=== PATIENT | female | born 1945 | race Caucasian/White ===

== ENCOUNTER 2016-09-26 09:00 | Outpatient (CLI) ==
[2013-12-08 23:12] VITALS: BMI 29.2
[2016-09-26] MEDS ORDERED: RECLAST 5 MG/100 ML SOLUTION 5 MG in PREMIX INFUSION 100 ML VIAL 1 VIAL IV ONE (09:10)
[2016-09-26 09:44] LABS: CALCIUM 9.3 mg/dL (8.2-10.2); CREATININE 0.76 mg/dL (0.60-1.30)
== END 2016-09-26 09:01 | disposition home or self-care (01) ==
LOC: OPMED 09:00
PROVIDERS: ATTEND Emergency Medicine
DX: M81.0 Age-related osteoporosis without current pathological fracture (principal)
CPT/HCPCS: 36415; 82310; 82565; 96365

== ENCOUNTER 2017-01-03 10:44 | Outpatient (CLI) | payer OTHER ==
[2013-12-08 23:12] VITALS: BMI 29.2
[2017-01-03 12:47] LABS: BASOPHILS # (AUTO) 0.1 K/uL (0-0.2); BASOPHILS % (AUTO) 0.7 % (0.0-3.0); EOSINOPHILS # (AUTO) 0.2 K/ul (0.0-0.7); EOSINOPHILS % (AUTO) 2.7 % (0.0-7.0); HEMATOCRIT 43.8 % (37.0-47.0); HEMOGLOBIN 14.7 g/dl (12.0-16.0); IMMATURE GRANULOCYTE % (AUTO) 0.3 % (0.0-5.0); LYMPHOCYTES # (AUTO) 2.2 K/uL (0.60-3.4); LYMPHOCYTES % (AUTO) 30.2 (10.0-50.0); MEAN CORPUSCULAR HEMOGLOBIN 27.7 pg (27.0-31.0); MEAN CORPUSCULAR HGB CONC 33.6 (31.8-35.4); MEAN CORPUSCULAR VOLUME 82.6 fl (81.0-99.0); MONOCYTES # (AUTO) 0.5 K/uL (0.4-2.0); MONOCYTES % (AUTO) 6.7 (0-10); NEUTROPHILS # (AUTO) 4.3 K/ul (2.0-6.9); NEUTROPHILS % (AUTO) 59.4; PLATELET COUNT 316 10^3/uL (140-440); WHITE BLOOD COUNT 7.16 K/ul (4.6-10.2)
[2017-01-03 13:38] LABS: ALBUMIN 3.7 g/dL (3.4-5.0); ALBUMIN/GLOBULIN RATIO 1.12; ANION GAP 17.1; BILIRUBIN,TOTAL 0.32 mg/dL (0.00-1.20); BUN/CREATININE RATIO 16.88; CALCIUM 9.9 mg/dL (8.2-10.2); CHOL/HDL RATIO 3.5 (4.5-5.5); CREATININE 0.77 mg/dL (0.60-1.30); POTASSIUM 4.1 mmol/L (3.5-5.10)
== END 2017-01-03 10:45 | disposition home or self-care (01) ==
LOC: LAB 10:44
PROVIDERS: ATTEND Emergency Medicine
DX: E78.5 Hyperlipidemia, unspecified (principal); I10 Essential (primary) hypertension
CPT/HCPCS: 36415; 80053; 80061; 84443; 85025

== ENCOUNTER 2019-02-11 10:09 | Outpatient (CLI) | payer OTHER ==
[2013-12-08 23:12] VITALS: BMI 29.2
--- NOTE | 2019-02-11 11:51 | MAMMO ---
EXAM: Bilateral digital screening mammogram (2-D and 3-D) History: Screening Comparison: None available. Findings: MLO and CC views of bilateral breasts demonstrate scattered fibroglandular breast parenchy ma. CAD was reviewed by the radiologist. Tomosynthesis was performed. Bilateral silicone breast im plants. Contour deformities of the bilateral breast implants. There is suspicion for intracapsular rupture bilaterally and there is most likely extracapsular rupture on the right with dense silicone e xtending into the axillary tail. No suspicious microcalcifications and no obvious suspicious masses are identified. Impression: Findings are suspicious for bilateral intracapsular rupture and extracapsular rupture of silicone on the right. An MRI of the breast can be obtained for further evaluation. No definite mal ignant findings are seen. BI-RADS 0, incomplete. Consider further evaluation with an MRI.
--- NOTE | 2019-02-11 12:34 | DI ---
EXAM: Three views thoracic spine HISTORY: Pain COMPARISON: None FINDINGS: The vertebral bodies are normal in height. Alignment is normal. Mild multilevel disc space narrowing, endplate spurring. No fracture. Visualized lungs are clear. IMPERSSION: Mild thoracic spondylosis.
--- NOTE | 2019-02-11 12:35 | DI ---
EXAM: Three views of the lumbar spine. INDICATION: Pain in back. COMPARISON: None. FINDINGS/IMPRESSION: There are five lumbar type vertebral bodies. Spinal Alignment is preserved. No significant listhesi s. Vertebral body heights are preserved. No acute fracture. Multilevel disc space narrowing and endplate spurring, moderate/advanced at L4-5. Moderate facet art hrosis at L3-4, L4-5 and L5-S1. Mild atherosclerotic calcifications.
== END 2019-02-11 10:10 | disposition home or self-care (01) ==
LOC: RAD 10:09
PROVIDERS: ATTEND Internal Medicine
DX: Z12.31 Encounter for screening mammogram for malignant neoplasm of breast (principal); M54.9 Dorsalgia, unspecified

== ENCOUNTER 2020-12-08 09:33 | Inpatient (IN) ==
[2020-12-08 09:38] VITALS: BMI 29.2
--- NOTE | 2020-12-08 10:03 | ED.PDOC ---
General ED Provider: Dr. RAJENDRA ANDERSEN Chief Complaint: Cough Stated Complaint: Cough and congestion, SOB , Audible wheezing and dyspnea; Hx COPD Onset X 4 days/ Congested cough with expiratory wheezies Time Seen by Provider: 12/08/20 09:50 Information Source: Patient and Family Exam Limitations: No limitations Primary Care Provider: JOAN WOLFE Nursing and Triage Documentation Reviewed and Agree: Yes Does patient meet sepsis criteria?: No System Inflammatory Response Syndrome: Not Applicable Sepsis Protocol: For patient's 13 years and over: Temp is 96.8 and below OR 101 and greater Pulse >90 BPM Resp >20/minute Acutely Altered Mental Status Are patient's symptoms suggestive of a new infection, such as: -Pneumonia -Skin, Soft Tissue -Endocarditis -UTI -Bone, Joint Infection -Implantable Device -Acute Abdominal Infection -Wound Infection -Meningitis -Blood Stream Catheter Infection -Unknown Respiratory Complaint Exam Shortness of Air Complaint/Exam Symptoms Are: Still present Timing: Intermittent Initial Severity: Moderate Current Severity: Moderate Character: Reports Dyspnea at rest and Dyspnea on exertion Aggravating: Reports Allergens, Movement, Deep breaths and Recumbent position Alleviating: Reports Bronchodilators, Upright position and Spontaneous resolution; Denies Oxygen Associated Signs and Symptoms: Reports Cough and Wheezing Related History: Reports Similar episode History of Healthcare-Acquired Pneumonia: Lives at skilled nursing Cardiac Risk Factors: Reports None Pseudomonas Risk Factors: Reports None Tuberculosis Risk Factors: Reports None Home Oxygen Use: No Stridor Present: No Subcutaneous Emphysema: No Accessory Muscle Use: No Retractions: Not Present Diminished Breath Sounds: Yes Prolonged Expiratory Phase: No Unable to Speak Full Sentences: No Fatigue: Yes Leg Swelling: No Dali's Sign Present: No Grunting Respirations: No Kussmaul Respirations: No Differential Diagnoses: COPD Exacerbation, Pneumonia, Pulmonary Embolism and Bronchospasm Review of Systems Review Of Systems Constitutional: Reports No symptoms Eyes: Reports No symptoms Ears, Nose, Mouth, Throat: Reports No symptoms Respiratory: Reports Cough, Short of air and Wheezing Cardiac: Reports No symptoms GI: Reports No symptoms : Reports No symptoms Musculoskeletal: Reports No symptoms Skin: Reports No symptoms Neurological: Reports No symptoms and Cognitive dysfunction Endocrine: Reports No symptoms Hematologic/Lymphatic: Reports No symptoms All Other Systems: Reviewed and Negative [facility] Medical History (Updated 12/08/20 @ 14:37 by CLAUDY HENDERSON) Allergic sinusitis Arthritis COPD (chronic obstructive pulmonary disease) Early onset Alzheimer's dementia Gastroesophageal reflux disease History of TIAs Hyperlipidemia Memory loss Family History FATHER Cerebrovascular accident Mother Cerebrovascular accident Social History Smoking and tobacco status: Former smoker Surgical History History of musculoskeletal system surgery Status post hysterectomy Status post tonsillectomy Status post tonsillectomy and adenoidectomy Female Reproductive History Menstrual Hx Hysterectomy: Yes Hx Tubal Ligation: No Physical Exam Physical Exam Appearance: Reports Ill-appearing and Obese (Elderly white female) Ill-appearing: Mild Pain Distress: None Eyes: Reports MAYUR, EOMI and Conjunctiva clear ENT: Reports Ears normal, Nose normal and Oropharynx normal Neck: Nonsupple Respiratory: Reports Airway patent, Breath sounds diminished and Wheezes Cardiovascular: Reports RRR, Pulses normal and No rub GI/: Reports Soft, Nontender, No masses and Bowel sounds normal Musculoskeletal: Reports Normal strength, ROM intact, No edema, No calf tenderness and Limited ROM Skin: Reports Warm, Dry, Normal color and Pale Neurological: Reports Sensation intact, Motor intact, Cranial nerves intact, Destiny rt and Alert to pain Psychiatric: Reports Affect appropriate, Mood appropriate and Anxious Critical Care Note Critical Care Note Total Critical Care Time (mins): 60 Course Course Hematology/Chemistry: 12/08/20 10:30 12/08/20 10:30 Orders, Labs, Meds: Lab Review 12/08/20 12/08/20 12/08/20 10:30 10:30 10:30 WBC 11.80 H RBC 5.23 Hgb 14.0 Hct 43.3 MCV 82.8 MCH 26.8 L MCHC 32.3 RDW Coeff of Marli 15.2 H Plt Count 288 Immature Gran % (Auto) 0.5 Neut % (Auto) 73.7 Lymph % (Auto) 17.4 Howard % (Auto) 5.5 Eos % (Auto) 2.4 Baso % (Auto) 0.5 Neut # (Auto) 8.7 H Lymph # (Auto) 2.1 Howard # (Auto) 0.7 Eos # (Auto) 0.3 Baso # (Auto) 0.1 Immature Gran # (Auto) 0.1 Puncture Site Base Excess O2 Saturation ABG pH ABG pCO2 ABG pO2 ABG HCO3 ABG Total CO2 Niranjan Test Hemoglobin Oxyhemoglobin Carboxyhemoglobin Total Hemoglobin FiO2 % Sodium 139.1 Potassium 4.05 Chloride 104.3 Carbon Dioxide 28.4 Anion Gap 10.45 BUN 14.6 Creatinine 1.04 Estimated GFR (MDRD) 52.00 BUN/Creatinine Ratio 14.03 Glucose 92.6 Calcium 9.02 Magnesium 2.08 Total Bilirubin 0.48 AST 31.2 ALT 21.3 Alkaline Phosphatase 155.9 H Total Protein 6.67 Albumin 4.00 Globulin 2.67 Albumin/Globulin Ratio 1.49 D-Dimer 786.53 H Adenovirus (PCR) B. pertussis DNA (PCR) B.parapertussis DNA PCR C. pneumoniae DNA (PCR) Coronavirus OC43 (PCR) Coronavirus HKU1 (PCR) Coronavirus 229E (PCR) Coronavirus NL63 (PCR) Human Metapneumovir PCR Influenza Type A (PCR) Influenza B (RT-PCR) M. pneumoniae (PCR) Parainfluenza 1 (PCR) Parainfluenza 2 (PCR) Parainfluenza 3 (PCR) Parainfluenza 4 (PCR) RSV (PCR) Entero/Rhino (PCR) SARS-CoV-2 (PCR) 12/08/20 12/08/20 10:34 12:13 WBC RBC Hgb Hct MCV MCH MCHC RDW Coeff of Marli Plt Count Immature Gran % (Auto) Neut % (Auto) Lymph % (Auto) Howard % (Auto) Eos % (Auto) Baso % (Auto) Neut # (Auto) Lymph # (Auto) Howard # (Auto) Eos # (Auto) Baso # (Auto) Immature Gran # (Auto) Puncture Site R rad Base Excess 2.2 O2 Saturation 92.4 L ABG pH 7.43 ABG pCO2 40.0 ABG pO2 63.0 L ABG HCO3 26.5 ABG Total CO2 27.7 H Niranjan Test Y Hemoglobin 0.3 Oxyhemoglobin 91.4 L Carboxyhemoglobin 0.6 Total Hemoglobin 14.1 FiO2 % 21.0 Sodium Potassium Chloride Carbon Dioxide Anion Gap BUN Creatinine Estimated GFR (MDRD) BUN/Creatinine Ratio Glucose Calcium Magnesium Total Bilirubin AST ALT Alkaline Phosphatase Total Protein Albumin Globulin Albumin/Globulin Ratio D-Dimer Adenovirus (PCR) Not detected B. pertussis DNA (PCR) Not detected B.parapertussis DNA PCR Not detected C. pneumoniae DNA (PCR) Not detected Coronavirus OC43 (PCR) Not detected Coronavirus HKU1 (PCR) Not detected Coronavirus 229E (PCR) Not detected Coronavirus NL63 (PCR) Not detected Human Metapneumovir PCR Not detected Influenza Type A (PCR) Not detected Influenza B (RT-PCR) Not detected M. pneumoniae (PCR) Not detected Parainfluenza 1 (PCR) Not detected Parainfluenza 2 (PCR) Not detected Parainfluenza 3 (PCR) Detected H Parainfluenza 4 (PCR) Not detected RSV (PCR) Not detected Entero/Rhino (PCR) Not detected SARS-CoV-2 (PCR) Not detected Orders Category Date Time Status ADMIT PATIENT INPATIENT .TO [facility] (MONITORED BED) ADMISSION 12/08/20 12:02 Active ABG DRAW REQUEST Stat CARDIO 12/08/20 10:07 Completed EKG-(ED ONLY) Stat CARDIO 12/08/20 11:36 Completed METERED DOSE INHALATION Routine CARDIO 12/08/20 10:11 Completed OXYGEN Routine CARDIO 12/08/20 10:09 Active ACTIVITY .Early Mobilization for VTE Prevention CARE 12/08/20 12:11 Active ACTIVITY .Up With Assistance CARE 12/08/20 12:10 Active BLOOD GLUCOSE MONITORING 0630,1100,1700,2100 CARE 12/08/20 12:12 Active CASE MANAGEMENT CONSULT ONCE CARE 12/08/20 12:10 Completed INTAKE & OUTPUT Q8HR CARE 12/08/20 12:10 Active TELEMETRY MONITORING TELE CARE 12/08/20 12:02 Active VITAL SIGNS Q8HR CARE 12/08/20 12:10 Completed REGULAR DIET DIETARY 12/08/20 Lunch Ordered IV [ED IV/MEDIPORT/POWERPORT] .ONCE EMERGENCY 12/08/20 10:14 Active ABG COOX Stat LAB 12/08/20 10:34 Completed BLOOD CULTURE (ED ONLY) Stat LAB 12/08/20 10:30 Received CBC W/ AUTO DIFF DAILY@0600 LAB 12/09/20 06:00 Ordered CBC W/ AUTO DIFF DAILY@0600 LAB 12/10/20 06:00 Ordered CBC W/ AUTO DIFF Stat LAB 12/08/20 10:30 Completed CMP [COMPREHENSIVE METABOLIC PANEL] Stat LAB 12/08/20 10:30 Completed COMPREHENSIVE METABOLIC PANEL DAILY@0600 LAB 12/09/20 06:00 Ordered COMPREHENSIVE METABOLIC PANEL DAILY@0600 LAB 12/10/20 06:00 Ordered D-DIMER Stat LAB 12/08/20 10:30 Completed MAGNESIUM Stat LAB 12/08/20 10:30 Completed RESPIRATORY PANEL 2.1 (PCR) Stat LAB 12/08/20 12:13 Completed SPUTUM CULTURE Stat LAB 12/08/20 10:10 Uncollected TROPONIN I Q8H LAB 12/08/20 18:16 Received TROPONIN I Q8H LAB 12/09/20 02:15 Ordered 0.9 % Sodium Chloride [Saline Flush] MEDS 12/08/20 10:14 Active 1 syr IVF PRN PRN Albuterol Inhaler(with Spacer) [Ventolin Hfa (Per Puff- MEDS 12/08/20 10:11 Discontinued with Spacer)] 2 puff IH ONCE ONE Azithromycin [Zithromax] MEDS 12/08/20 12:16 Discontinued 500 mg PO ONCE ONE Ceftriaxone/D5w 1 gm Premix [Rocephin 1 gm/50 ml D5w] MEDS 12/09/20 09:00 Active 1 gm in 50 ml IV DAILY Ceftriaxone/D5w 1 gm Premix [Rocephin 1 gm/50 ml D5w] MEDS 12/08/20 12:04 Discontinued 1 gm in 50 ml IV ONCE Codeine/Promethazine Syrup [Phenergan with Codeine 6.25 MEDS 12/08/20 12:10 Discontinued /10 mg/5 ml] 5 ml PO ONCE STA Donepezil HCl [Aricept] MEDS 12/09/20 09:00 Active 10 mg PO DAILY Enoxaparin Sodium [Lovenox] MEDS 12/09/20 09:00 Active 40 mg SUBCUT DAILY Fluoxetine HCl [Prozac] MEDS 12/09/20 09:00 Active 40 mg PO DAILY Guaifenesin/Dextromethorphan [Robitussin Dm Syrup] MEDS 12/08/20 12:15 Active 5 ml PO Q4-6H PRN Memantine HCl [Namenda] MEDS 12/08/20 21:00 Active 10 mg PO BID Methylprednisolone Sod Succ/Pf [Solu-Medrol 125 mg] MEDS 12/08/20 12:06 Discontinued 125 mg IM ONCE ONE Ondansetron HCl/Pf [Zofran 4 mg/2 ml] MEDS 12/08/20 12:10 Active 4 mg IVP Q6H PRN Pravastatin Sodium [Pravachol] MEDS 12/09/20 09:00 Active 40 mg PO DAILY RESUSCITATION STATUS Routine OTHERS 12/08/20 12:10 Completed CHEST, 1V AP ONLY Stat RADS 12/08/20 10:13 Completed PT CONSULT Routine THERAPIES 12/08/20 Ordered Medications Generic Name Dose Route Start Last Admin Trade Name Freq PRN Reason Stop Dose Admin Albuterol/Ipratropium 3 ml 12/08/20 20:00 Ipratropium/Albuterol Vial.Neb NEB RTQID [facility] Azithromycin 500 mg 12/09/20 09:00 Azithromycin 250 Mg Tablet PO 12/10/20 09:01 DAILY [facility] Budesonide 1 mg 12/08/20 20:00 Budesonide 1 Mg/2 Ml Vial.Neb NEB 0600,2000 [facility] Donepezil HCl 10 mg 12/09/20 09:00 Donepezil Hcl 10 Mg Tablet PO DAILY [facility] Enoxaparin Sodium 40 mg 12/09/20 09:00 Enoxaparin Sodium 40 Mg/0.4 Ml Syr SUBCUT DAILY [facility] Fluoxetine HCl 40 mg 12/09/20 09:00 Fluoxetine Hcl 20 Mg Capsule PO DAILY RK Guaifenesin/Dextromethorphan 5 ml 12/08/20 12:15 Guaifenesin/Dextromethorphan 200/20 Mg/10 Ml Cup PO Q4-6H PRN Cold Symptons Hydrocortisone Sodium Succinate 125 mg 12/08/20 17:00 12/08/20 17:09 Hydrocortisone Sod Succ/Pf 250 Mg/2 Ml Vial IVP 125 mg Q8HR RK Administration CEFTRIAXONE/D5W 1 GM PREMIX 1 gm in 50 mls @ 75 mls/hr 12/09/20 09:00 Rocephin 1 Gm/50 Ml D5w IV 12/12/20 08:59 DAILY RK Memantine 10 mg 12/08/20 21:00 Memantine Hcl 10 Mg Tablet PO BID RK Ondansetron HCl 4 mg 12/08/20 12:10 Ondansetron Hcl/Pf 4 Mg/2 Ml Sdv IVP Q6H PRN Nausea / Vomiting Pravastatin Sodium 40 mg 12/09/20 09:00 Pravastatin Sodium 40 Mg Tablet PO DAILY RK Sodium Chloride 1 syr 12/08/20 10:14 12/08/20 12:23 0.9% Sodium Chloride 10 Ml Disp.Syrin IVF 1 syr PRN PRN Administration To flush IV Discontinued Medications Generic Name Dose Route Start Last Admin Trade Name Antoni PRN Reason Stop Dose Admin Albuterol Sulfate 2 puff 12/08/20 10:11 12/08/20 10:55 Albuterol Sulfate (Ventolin Hfa) 18 Gm 1 Puff With Spacer IH 12/08/20 10:12 2 puff ONCE ONE Administration Azithromycin 500 mg 12/08/20 12:16 12/08/20 12:27 Azithromycin 250 Mg Tablet PO 12/08/20 12:17 500 mg ONCE ONE Administration CEFTRIAXONE/D5W 1 GM PREMIX 1 gm in 50 mls @ 75 mls/hr 12/08/20 12:04 12/08/20 12:23 Rocephin 1 Gm/50 Ml D5w IV 12/08/20 12:43 75 mls/hr ONCE STA Administration Methylprednisolone Sodium Succinate 125 mg 12/08/20 12:06 12/08/20 12:22 Methylprednisolone Sod Succ/Pf 125 Mg/2 Ml Vial IM 12/08/20 12:07 125 mg ONCE ONE Administration Promethazine HCl/Codeine 5 ml 12/08/20 12:10 12/08/20 12:27 Promethazine/Codeine Syrup 6.25/10 Mg/5 Ml Disp.Syringe PO 12/08/20 12:11 5 ml ONCE STA Administration Vital Signs: Temp Pulse Resp BP Pulse Ox 12/08/20 09:33 96.3 F L 74 22 133/69 92 L Discharge Plan Discharge Patient Disposition: ADMITTED INPATIENT Discharge Problem: CHF exacerbation ED Provider: RAJENDRA ANDERSEN Condition: Stable Physician Progress Note: []
[2020-12-08] MEDS ORDERED: VENTOLIN HFA (PER PUFF-WITH SPACER) IH ONE (10:11)
[2020-12-08 10:37] LABS: BASOPHILS # (AUTO) 0.1 K/uL (0-0.2); BASOPHILS % (AUTO) 0.5 % (0.0-3.0); EOSINOPHILS # (AUTO) 0.3 K/ul (0.0-0.7); EOSINOPHILS % (AUTO) 2.4 % (0.0-7.0); HEMATOCRIT 43.3 % (37.0-47.0); IMMATURE GRANULOCYTE # (AUTO) 0.1 (0.0-1.0); IMMATURE GRANULOCYTE % (AUTO) 0.5 % (0.0-5.0); LYMPHOCYTES # (AUTO) 2.1 K/uL (0.60-3.4); LYMPHOCYTES % (AUTO) 17.4 (10.0-50.0); MEAN CORPUSCULAR HEMOGLOBIN 26.8 pg (27.0-31.0); MEAN CORPUSCULAR HGB CONC 32.3 (31.8-35.4); MEAN CORPUSCULAR VOLUME 82.8 fl (81.0-99.0); MONOCYTES # (AUTO) 0.7 K/uL (0.4-2.0); MONOCYTES % (AUTO) 5.5 (0-10); NEUTROPHILS # (AUTO) 8.7 K/ul (2.0-6.9); NEUTROPHILS % (AUTO) 73.7 % (42.2-75.2); PLATELET COUNT 288 10^3/uL (140-440); RDW COEFFICIENT OF VARIATION 15.2 % (11.6-14.8); RED BLOOD COUNT 5.23 10^6/ul (4.20-5.40)
--- NOTE | 2020-12-08 10:43 | DI ---
EXAM: Chest one view HISTORY: Dyspnea COMPARISON: 07/16/2014 TECHNIQUE: Single view of the chest was performed FINDINGS: No airspace consolidation. Granulomas calcification. There is no pleural effusion or pne umothorax. The heart is normal in size. The mediastinal contour is normal. There are no acute abno rmalities of the bones. IMPRESSION: No acute cardiopulmonary process.
[2020-12-08 10:49] LABS: ALANINE AMINOTRANSFERASE 21.3 U/L (0-35); ALKALINE PHOSPHATASE 155.9 U/L (53-141); ASPARTATE AMINO TRANSFERASE 31.2 U/L (14-36); BILIRUBIN,TOTAL 0.48 mg/dL (0.2-1.3); BLOOD UREA NITROGEN 14.6 mg/dL (7-17); CALCIUM 9.02 mg/dL (8.4-10.2); CARBON DIOXIDE 28.4 mmol/L (22-30.0); CHLORIDE 104.3 mmol/L (98-107); CREATININE 1.04 mg/dL (0.60-1.30); GLUCOSE 92.6 mg/dL (74-106); MAGNESIUM 2.08 mg/dL (1.6-2.3); POTASSIUM 4.05 mmol/L (3.5-5.1); SODIUM 139.1 mmol/L (134.5-145); TOTAL PROTEIN 6.67 g/dL (6.3-8.2)
[2020-12-08 11:00] LABS: ABG O2 HGB 91.4 % (95-100); ABG PH 7.43 (7.35-7.45); BEecf 2.2 (-2.0-3.0); COHb 0.6 (0.5-1.5); HCO3 26.5 (21-28); MetHb 0.3 (0-1.5); TCO2 27.7 (19-24); sO2 92.4 % (94-98); tHb 14.1 g/dl (11.7-17.4)
[2020-12-08] MEDS ORDERED: ROCEPHIN 1 GM/50 ML D5W 1 GM/50 ML BAG IV STA (12:04)
[2020-12-08] MEDS ORDERED: SOLU-MEDROL 125 MG IM ONE (12:06)
[2020-12-08] MEDS ORDERED: PHENERGAN WITH CODEINE 6.25/10 MG/5 ML PO STA (12:10)
[2020-12-08] MEDS ORDERED: ZOFRAN 4 MG/2 ML IVP PRN (12:10)
[2020-12-08] MEDS ORDERED: ZITHROMAX PO ONE (12:16)
[2020-12-08 12:18] LABS: BORDETELLA PARAPERTUSSIS (PCR) NOT DETECTED (NOT DETECT); BORDETELLA PERTUSSIS (PCR) NOT DETECTED (NOT DETECT); CHLAMYDIA PNEUMONIAE (PCR) NOT DETECTED (NOT DETECT); CORONAVIRUS 229E (PCR) NOT DETECTED (NOT DETECT); CORONAVIRUS HKU1 (PCR) NOT DETECTED (NOT DETECT); CORONAVIRUS NL63 (PCR) NOT DETECTED (NOT DETECT); CORONAVIRUS OC43 (PCR) NOT DETECTED (NOT DETECT); HUMAN METAPNEUMOVIRUS (PCR) NOT DETECTED (NOT DETECT); HUMAN RHINOVIRUS/ENTEROV (PCR) NOT DETECTED (NOT DETECT); INFLUENZA B (PCR) NOT DETECTED (NOT DETECT); MYCOPLASMA PNEUMONIAE (PCR) NOT DETECTED (NOT DETECT); PARAINFLUENZA VIRUS 1 (PCR) NOT DETECTED (NOT DETECT); PARAINFLUENZA VIRUS 2 (PCR) NOT DETECTED (NOT DETECT); PARAINFLUENZA VIRUS 4 (PCR) NOT DETECTED (NOT DETECT); RESPIRATORY SYNCYTIAL V (PCR) NOT DETECTED (NOT DETECT); SARS_COV_2 (PCR) NOT DETECTED (NOT DETECT)
[2020-12-08 13:11] LABS: ADENOVIRUS (PCR) NOT DETECTED (NOT DETECT); PARAINFLUENZA VIRUS 3 (PCR) DETECTED (NOT DETECT)
[2020-12-08] MEDS: SOLU-CORTEF 250 MG IVP SCH ×2 (17:09→20:44)
[2020-12-08] MEDS: NAMENDA PO SCH (20:28)
[2020-12-08] MEDS: ROBITUSSIN DM SYRUP PO PRN (20:31)
[2020-12-08] MEDS: DUONEB NEB SCH (21:17)
[2020-12-08] MEDS: PULMICORT 1 MG/2 ML NEB SCH (21:17)
[2020-12-08] MEDS: PHENERGAN WITH CODEINE 6.25/10 MG/5 ML PO PRN (23:53)
[2020-12-09 03:22] LABS: BASOPHILS % (AUTO) 0.2 % (0.0-3.0); HEMATOCRIT 41.1 % (37.0-47.0); HEMOGLOBIN 13.5 g/dl (12.0-16.0); IMMATURE GRANULOCYTE # (AUTO) 0.1 (0.0-1.0); IMMATURE GRANULOCYTE % (AUTO) 1.2 % (0.0-5.0); LYMPHOCYTES % (AUTO) 8.8 (10.0-50.0); MEAN CORPUSCULAR HEMOGLOBIN 27.3 pg (27.0-31.0); MEAN CORPUSCULAR HGB CONC 32.8 (31.8-35.4); MONOCYTES # (AUTO) 0.3 K/uL (0.4-2.0); MONOCYTES % (AUTO) 2.6 (0-10); NEUTROPHILS # (AUTO) 9.8 K/ul (2.0-6.9); NEUTROPHILS % (AUTO) 87.2 % (42.2-75.2); PLATELET COUNT 318 10^3/uL (140-440); RDW COEFFICIENT OF VARIATION 15.3 % (11.6-14.8); RED BLOOD COUNT 4.95 10^6/ul (4.20-5.40); WHITE BLOOD COUNT 11.28 K/ul (4.6-10.2)
[2020-12-09 03:33] LABS: ALBUMIN 3.84 g/dL (3.5-5.0); ALKALINE PHOSPHATASE 153.2 U/L (53-141); ASPARTATE AMINO TRANSFERASE 39.1 U/L (14-36); BILIRUBIN,TOTAL 0.3 mg/dL (0.2-1.3); BLOOD UREA NITROGEN 16.1 mg/dL (7-17); CALCIUM 9.1 mg/dL (8.4-10.2); CARBON DIOXIDE 21.7 mmol/L (22-30.0); CHLORIDE 104.6 mmol/L (98-107); CREATININE 0.71 mg/dL (0.60-1.30); GLUCOSE 211.1 mg/dL (74-106); POTASSIUM 3.7 mmol/L (3.5-5.1); SODIUM 136.9 mmol/L (134.5-145); TOTAL PROTEIN 6.52 g/dL (6.3-8.2)
[2020-12-09 03:41] LABS: ALANINE AMINOTRANSFERASE 21.1 U/L (0-35)
[2020-12-09] MEDS: PULMICORT 1 MG/2 ML NEB SCH ×2 (04:35→20:55)
[2020-12-09] MEDS: DUONEB NEB SCH ×4 (04:35→20:55)
[2020-12-09] MEDS: SOLU-CORTEF 250 MG IVP SCH ×3 (06:01→21:57)
[2020-12-09] MEDS: ZITHROMAX PO SCH (08:54)
[2020-12-09] MEDS: PROZAC PO SCH (08:54)
[2020-12-09] MEDS: ARICEPT PO SCH (08:54)
[2020-12-09] MEDS: PRAVACHOL PO SCH (08:54)
[2020-12-09] MEDS: LOVENOX SUBCUT SCH (08:55)
[2020-12-09] MEDS: NAMENDA PO SCH ×2 (08:55→20:47)
--- NOTE | 2020-12-09 10:32 | PCM.PROG ---
Attending Provider: ATTENDING PROVIDER: Dr. JOAN WOLFE DATE OF SERVICE: 12/09/20 SUBJECTIVE: This 75 year old /WHITE F was hospitalized 12/08/20 with acute bronchitis, parainfluenza, COPD with asthma. REVIEW OF SYSTEMS: CONSTITUTIONAL: No night sweats. No fatigue, malaise, lethargy. No fever or chills. HEENT: Eyes: No visual changes. No eye pain. No eye discharge. ENT: No runny nose. No epistaxis. No sinus pain. No odynophagia. No congestion. RESPIRATORY: Less cough. No hemoptysis. Less shortness of breath. CARDIOVASCULAR: No angina symptoms. No CHF symptoms. No atypical chest pain for CAD. No palpitations. No orthopnea.. GASTROINTESTINAL: Appetite improved. No abdominal pain. No nausea or vomiting. No diarrhea or constipation. No hematemesis. No hematochezia. GENITOURINARY: No urgency. No frequency. No dysuria. No hematuria. No obstructive symptoms. No discharge. No pain. No significant abnormal bleeding. MUSCULOSKELETAL: No musculoskeletal pain; no joint swelling. NEUROLOGICAL: Awake, alert, oriented to time, place and person. No headache. No neck pain. No syncope. No seizures. No dizziness. PSYCHIATRIC: Not anxious. No depression. No suicidal thoughts. No homicidal thoughts. SKIN: No rash. No lesions. No wounds. ENDOCRINE: No unexplained weight loss. No weight gain. HEMATOLOGIC/LYMPHATIC: No anemia. No purpura. No petechiae. No prolonged or excessive bleeding. No palpable lymph nodes. PHYSICAL EXAMINATION: GENERAL: The patient is awake, alert and oriented, lying/sitting in bed in no distress. VITAL SIGNS: Temperature 98.0 F, Pulse 85, Respiratory Rate 18, BP 122/53, Pulse Ox 96% HEENT: Head normocephalic, atraumatic. Eyes: Extraocular muscles are intact. Pupils are equal, round and reactive to light and accommodation. Ears: No lesions. Nose appeared normal. Throat: No exudate or erythema. NECK: Supple. No JVD, no carotid bruit. No lymphadenopathy or thyromegaly. LUNGS: Decreased breath sounds. Good air entry. Less wheeze. Percussion note normal. Chest symmetrical. HEART: S1, S2, no S3. No murmurs. No cyanosis or clubbing. No ascites. Pulses: Dorsalis pedis and posterior tibial pulses +1 to +2 both sides. ABDOMEN: Soft. Non-tender. Bowel sounds active. No CVA tenderness. No mass felt. EXTREMITIES: No edema. Full range of motion of all extremities, equal. NEUROLOGIC: No focal deficit. Cranial nerves II through XII are grossly intact. No headache, no double vision or headache. SKIN: Warm and dry. Intact. Turgor-normal. LYMPHATIC: No palpable lymph nodes/no lymphedema. MUSCULOSKELETAL: Normal joints with no swelling. Muscle tone is normal. LAB REVIEW: 12/09/20 02:10 12/09/20 02:10 12/09/20 02:10: Sodium 136.9, Potassium 3.70, Chloride 104.6, Carbon Dioxide 21.7 L, Anion Gap 14.30, BUN 16.1, Creatinine 0.71, Estimated GFR (MDRD) 80.00, BUN/Creatinine Ratio 22.67, Glucose 211.1 H D, Calcium 9.10, Total Bilirubin 0.30, AST 39.1 H, ALT 21.1, Alkaline Phosphatase 153.2 H, Total Protein 6.52, Albumin 3.84, Globulin 2.68, Albumin/Globulin Ratio 1.43 12/09/20 02:10: WBC 11.28 H, RBC 4.95, Hgb 13.5, Hct 41.1, MCV 83.0, MCH 27.3, MCHC 32.8, RDW Coeff of Marli 15.3 H, Plt Count 318, Immature Gran % (Auto) 1.2, Neut % (Auto) 87.2 H, Lymph % (Auto) 8.8 L, Brown % (Auto) 2.6, Eos % (Auto) 0.0, Baso % (Auto) 0.2, Neut # (Auto) 9.8 H, Lymph # (Auto) 1.0, Brown # (Auto) 0.3 L, Eos # (Auto) 0.0, Baso # (Auto) 0.0, Immature Gran # (Auto) 0.1 12/09/20 02:10: Troponin I < 0.012 12/08/20 18:16: Troponin I < 0.012 12/08/20 12:13: Adenovirus (PCR) Not detected, B. pertussis DNA (PCR) Not detected, B.parapertussis DNA PCR Not detected, C. pneumoniae DNA (PCR) Not detected, Coronavirus OC43 (PCR) Not detected, Coronavirus HKU1 (PCR) Not detected, Coronavirus 229E (PCR) Not detected, Coronavirus NL63 (PCR) Not detected, Human Metapneumovir PCR Not detected, Influenza Type A (PCR) Not detected, Influenza B (RT-PCR) Not detected, M. pneumoniae (PCR) Not detected, Parainfluenza 1 (PCR) Not detected, Parainfluenza 2 (PCR) Not detected, Parainfluenza 3 (PCR) Detected H, Parainfluenza 4 (PCR) Not detected, RSV (PCR) Not detected, Entero/Rhino (PCR) Not detected, SARS-CoV-2 (PCR) Not detected 12/08/20 10:34: Puncture Site R rad, Base Excess 2.2, O2 Saturation 92.4 L, ABG pH 7.43, ABG pCO2 40.0, ABG pO2 63.0 L, ABG HCO3 26.5, ABG Total CO2 27.7 H, Niranjan Test Y, Hemoglobin 0.3, Oxyhemoglobin 91.4 L, Carboxyhemoglobin 0.6, Total Hemoglobin 14.1, FiO2 % 21.0 12/08/20 10:30: D-Dimer 786.53 H 12/08/20 10:30: Sodium 139.1, Potassium 4.05, Chloride 104.3, Carbon Dioxide 28.4, Anion Gap 10.45, BUN 14.6, Creatinine 1.04, Estimated GFR (MDRD) 52.00, BUN/Creatinine Ratio 14.03, Glucose 92.6, Calcium 9.02, Magnesium 2.08, Total Bilirubin 0.48, AST 31.2, ALT 21.3, Alkaline Phosphatase 155.9 H, Total Protein 6.67, Albumin 4.00, Globulin 2.67, Albumin/Globulin Ratio 1.49 12/08/20 10:30: WBC 11.80 H, RBC 5.23, Hgb 14.0, Hct 43.3, MCV 82.8, MCH 26.8 L, MCHC 32.3, RDW Coeff of Marli 15.2 H, Plt Count 288, Immature Gran % (Auto) 0.5, Neut % (Auto) 73.7, Lymph % (Auto) 17.4, Brown % (Auto) 5.5, Eos % (Auto) 2.4, Baso % (Auto) 0.5, Neut # (Auto) 8.7 H, Lymph # (Auto) 2.1, Brown # (Auto) 0.7, Eos # (Auto) 0.3, Baso # (Auto) 0.1, Immature Gran # (Auto) 0.1 ASSESSMENT: Please see below. 1. Acute asthmatic bronchitis with viral infection. PLAN: 1. Continue steroids and antibiotics. 2. A1C. 3. Accucheks with sliding scale coverage . Plan and coordination of the patient's care discussed in the presence of Diabetologist and nurse. CONDITION: Stable SCRIBED BY: FRANCOIS ALEXANDER, Batch Analyst scribed while in presence of service performed by Dr. JOAN WOLFE on 12/09/20 ([id number])
[2020-12-09] MEDS: ROCEPHIN 1 GM/50 ML D5W 1 GM/50 ML BAG IV SCH (10:36)
[2020-12-09] MEDS: HUMULIN R SUBCUT PRN ×2 (11:14→17:31)
[2020-12-10] MEDS: PULMICORT 1 MG/2 ML NEB SCH ×2 (05:10→20:50)
[2020-12-10] MEDS: DUONEB NEB SCH ×4 (05:10→20:50)
[2020-12-10 05:16] LABS: BASOPHILS % (AUTO) 0.2 % (0.0-3.0); EOSINOPHILS % (AUTO) 0.1 % (0.0-7.0); HEMATOCRIT 37.5 % (37.0-47.0); HEMOGLOBIN 12.5 g/dl (12.0-16.0); IMMATURE GRANULOCYTE # (AUTO) 0.3 (0.0-1.0); IMMATURE GRANULOCYTE % (AUTO) 1.5 % (0.0-5.0); LYMPHOCYTES # (AUTO) 1.5 K/uL (0.60-3.4); LYMPHOCYTES % (AUTO) 9.1 (10.0-50.0); MEAN CORPUSCULAR HEMOGLOBIN 27.4 pg (27.0-31.0); MEAN CORPUSCULAR HGB CONC 33.3 (31.8-35.4); MEAN CORPUSCULAR VOLUME 82.1 fl (81.0-99.0); MONOCYTES # (AUTO) 0.5 K/uL (0.4-2.0); MONOCYTES % (AUTO) 3.2 (0-10); NEUTROPHILS # (AUTO) 14.3 K/ul (2.0-6.9); NEUTROPHILS % (AUTO) 85.9 % (42.2-75.2); PLATELET COUNT 291 10^3/uL (140-440); RDW COEFFICIENT OF VARIATION 15.6 % (11.6-14.8); RED BLOOD COUNT 4.57 10^6/ul (4.20-5.40); WHITE BLOOD COUNT 16.59 K/ul (4.6-10.2)
[2020-12-10 05:23] LABS: ALANINE AMINOTRANSFERASE 19.5 U/L (0-35); ALBUMIN 3.57 g/dL (3.5-5.0); ALKALINE PHOSPHATASE 116.6 U/L (53-141); ASPARTATE AMINO TRANSFERASE 25.6 U/L (14-36); BILIRUBIN,TOTAL 0.28 mg/dL (0.2-1.3); BLOOD UREA NITROGEN 17.6 mg/dL (7-17); CALCIUM 8.66 mg/dL (8.4-10.2); CARBON DIOXIDE 26.4 mmol/L (22-30.0); CHLORIDE 105.1 mmol/L (98-107); CREATININE 0.69 mg/dL (0.60-1.30); POTASSIUM 3.98 mmol/L (3.5-5.1); SODIUM 136.9 mmol/L (134.5-145); TOTAL PROTEIN 5.99 g/dL (6.3-8.2)
[2020-12-10] MEDS: SOLU-CORTEF 250 MG IVP SCH ×3 (05:54→20:48)
[2020-12-10] MEDS: HUMULIN R SUBCUT PRN ×2 (06:11→20:53)
[2020-12-10] MEDS: ARICEPT PO SCH (09:41)
[2020-12-10] MEDS: PROZAC PO SCH (09:41)
[2020-12-10] MEDS: PRAVACHOL PO SCH (09:41)
[2020-12-10] MEDS: ZITHROMAX PO SCH (09:41)
[2020-12-10] MEDS: ROCEPHIN 1 GM/50 ML D5W 1 GM/50 ML BAG IV SCH (09:42)
[2020-12-10] MEDS: NAMENDA PO SCH ×2 (09:42→20:53)
[2020-12-10] MEDS: LOVENOX SUBCUT SCH (09:42)
[2020-12-11] MEDS: ROBITUSSIN DM SYRUP PO PRN (00:43)
[2020-12-11] MEDS: DUONEB NEB SCH ×4 (04:50→20:50)
[2020-12-11] MEDS: PULMICORT 1 MG/2 ML NEB SCH ×2 (04:50→20:50)
[2020-12-11] MEDS: SOLU-CORTEF 250 MG IVP SCH (05:01)
[2020-12-11] MEDS: PROZAC PO SCH (09:27)
[2020-12-11] MEDS: ROCEPHIN 1 GM/50 ML D5W 1 GM/50 ML BAG IV SCH (09:27)
[2020-12-11] MEDS: LOVENOX SUBCUT SCH (09:27)
[2020-12-11] MEDS: PRAVACHOL PO SCH (09:28)
[2020-12-11] MEDS: NAMENDA PO SCH ×2 (09:28→20:32)
[2020-12-11] MEDS: ARICEPT PO SCH (09:28)
[2020-12-11 10:47] LABS: BASOPHILS % (AUTO) 0.1 % (0.0-3.0); HEMATOCRIT 39.1 % (37.0-47.0); HEMOGLOBIN 12.8 g/dl (12.0-16.0); IMMATURE GRANULOCYTE # (AUTO) 0.3 (0.0-1.0); IMMATURE GRANULOCYTE % (AUTO) 1.6 % (0.0-5.0); LYMPHOCYTES # (AUTO) 1.1 K/uL (0.60-3.4); LYMPHOCYTES % (AUTO) 7.3 (10.0-50.0); MEAN CORPUSCULAR HGB CONC 32.7 (31.8-35.4); MEAN CORPUSCULAR VOLUME 82.5 fl (81.0-99.0); MONOCYTES # (AUTO) 0.5 K/uL (0.4-2.0); MONOCYTES % (AUTO) 3.2 (0-10); NEUTROPHILS # (AUTO) 13.5 K/ul (2.0-6.9); NEUTROPHILS % (AUTO) 87.8 % (42.2-75.2); PLATELET COUNT 283 10^3/uL (140-440); RDW COEFFICIENT OF VARIATION 15.9 % (11.6-14.8); RED BLOOD COUNT 4.74 10^6/ul (4.20-5.40); WHITE BLOOD COUNT 15.39 K/ul (4.6-10.2)
[2020-12-11 10:59] LABS: ALBUMIN 3.7 g/dL (3.5-5.0); ALKALINE PHOSPHATASE 109.1 U/L (53-141); ASPARTATE AMINO TRANSFERASE 27.6 U/L (14-36); BILIRUBIN,TOTAL 0.32 mg/dL (0.2-1.3); CALCIUM 8.79 mg/dL (8.4-10.2); CARBON DIOXIDE 24.6 mmol/L (22-30.0); CHLORIDE 104.9 mmol/L (98-107); CREATININE 0.9 mg/dL (0.60-1.30); GLUCOSE 170.3 mg/dL (74-106); POTASSIUM 3.44 mmol/L (3.5-5.1); SODIUM 138.3 mmol/L (134.5-145); TOTAL PROTEIN 6.09 g/dL (6.3-8.2)
[2020-12-11 11:06] LABS: ALANINE AMINOTRANSFERASE 25.8 U/L (0-35)
[2020-12-11] MEDS: PHENERGAN WITH CODEINE 6.25/10 MG/5 ML PO PRN ×2 (13:03→19:56)
[2020-12-11] MEDS: PROTONIX PO SCH (17:30)
[2020-12-12] MEDS: ROBITUSSIN DM SYRUP PO PRN ×2 (00:53→04:50)
[2020-12-12] MEDS: PHENERGAN WITH CODEINE 6.25/10 MG/5 ML PO PRN ×3 (02:20→20:48)
[2020-12-12] MEDS: PULMICORT 1 MG/2 ML NEB SCH ×2 (04:55→20:00)
[2020-12-12] MEDS: DUONEB NEB SCH ×4 (04:55→20:00)
[2020-12-12 05:20] LABS: BASOPHILS # (AUTO) 0.1 K/uL (0-0.2); BASOPHILS % (AUTO) 0.4 % (0.0-3.0); EOSINOPHILS # (AUTO) 0.2 K/ul (0.0-0.7); EOSINOPHILS % (AUTO) 1.3 % (0.0-7.0); HEMATOCRIT 37.4 % (37.0-47.0); HEMOGLOBIN 12.2 g/dl (12.0-16.0); IMMATURE GRANULOCYTE # (AUTO) 0.2 (0.0-1.0); IMMATURE GRANULOCYTE % (AUTO) 1.2 % (0.0-5.0); LYMPHOCYTES # (AUTO) 3.5 K/uL (0.60-3.4); LYMPHOCYTES % (AUTO) 25.6 (10.0-50.0); MEAN CORPUSCULAR HGB CONC 32.6 (31.8-35.4); MEAN CORPUSCULAR VOLUME 82.7 fl (81.0-99.0); MONOCYTES # (AUTO) 0.8 K/uL (0.4-2.0); MONOCYTES % (AUTO) 5.6 (0-10); NEUTROPHILS % (AUTO) 65.9 % (42.2-75.2); PLATELET COUNT 259 10^3/uL (140-440); RED BLOOD COUNT 4.52 10^6/ul (4.20-5.40); WHITE BLOOD COUNT 13.68 K/ul (4.6-10.2)
[2020-12-12 05:34] LABS: ALANINE AMINOTRANSFERASE 24.5 U/L (0-35); ALBUMIN 3.12 g/dL (3.5-5.0); ALKALINE PHOSPHATASE 106.2 U/L (53-141); ASPARTATE AMINO TRANSFERASE 28.6 U/L (14-36); BILIRUBIN,TOTAL 0.33 mg/dL (0.2-1.3); BLOOD UREA NITROGEN 23.5 mg/dL (7-17); CALCIUM 8.17 mg/dL (8.4-10.2); CHLORIDE 103.8 mmol/L (98-107); CREATININE 0.87 mg/dL (0.60-1.30); GLUCOSE 90.2 mg/dL (74-106); POTASSIUM 2.99 mmol/L (3.5-5.1); SODIUM 136.7 mmol/L (134.5-145); TOTAL PROTEIN 5.36 g/dL (6.3-8.2)
[2020-12-12] MEDS: PROTONIX PO SCH ×2 (06:17→17:33)
[2020-12-12] MEDS: ARICEPT PO SCH (09:47)
[2020-12-12] MEDS: PREDNISONE PO SCH (09:47)
[2020-12-12] MEDS: PRAVACHOL PO SCH (09:47)
[2020-12-12] MEDS: PROZAC PO SCH (09:47)
[2020-12-12] MEDS: LOVENOX SUBCUT SCH (09:48)
[2020-12-12] MEDS: NAMENDA PO SCH ×2 (09:48→20:48)
--- NOTE | 2020-12-12 13:17 | PN ---
DATE OF SERVICE: 12/08/2020 SUBJECTIVE: The patient was seen and examined with the Nurse Practitioner. The patient's history and physical was done and plan was formulated. She is going to be on antibiotics, NEBS, steroids and Oxygen. The patient has parainfluenza type III with acute bronchitis and wheezing. The patient is oriented to place and person. She recognized me. Son was present in the room and discussed the patient's condition. TIME SPENT: More than 30 minutes. Plan and coordination of the patient's care discussed in the presence of nurse. RAEANN
[2020-12-12] MEDS: K-DUR PO SCH ×2 (13:38→17:33)
[2020-12-12] MEDS: HUMULIN R SUBCUT PRN (17:34)
[2020-12-13] MEDS: DUONEB NEB SCH ×2 (05:00→10:22)
[2020-12-13] MEDS: PULMICORT 1 MG/2 ML NEB SCH (05:00)
[2020-12-13 05:16] LABS: BASOPHILS % (AUTO) 0.3 % (0.0-3.0); EOSINOPHILS # (AUTO) 0.2 K/ul (0.0-0.7); EOSINOPHILS % (AUTO) 1.8 % (0.0-7.0); HEMATOCRIT 36.5 % (37.0-47.0); IMMATURE GRANULOCYTE # (AUTO) 0.2 (0.0-1.0); IMMATURE GRANULOCYTE % (AUTO) 1.4 % (0.0-5.0); LYMPHOCYTES # (AUTO) 2.9 K/uL (0.60-3.4); LYMPHOCYTES % (AUTO) 21.6 (10.0-50.0); MEAN CORPUSCULAR HEMOGLOBIN 27.5 pg (27.0-31.0); MEAN CORPUSCULAR HGB CONC 32.9 (31.8-35.4); MEAN CORPUSCULAR VOLUME 83.7 fl (81.0-99.0); MONOCYTES # (AUTO) 0.6 K/uL (0.4-2.0); MONOCYTES % (AUTO) 4.5 (0-10); NEUTROPHILS # (AUTO) 9.6 K/ul (2.0-6.9); NEUTROPHILS % (AUTO) 70.4 % (42.2-75.2); PLATELET COUNT 262 10^3/uL (140-440); RDW COEFFICIENT OF VARIATION 16.1 % (11.6-14.8); RED BLOOD COUNT 4.36 10^6/ul (4.20-5.40); WHITE BLOOD COUNT 13.59 K/ul (4.6-10.2)
[2020-12-13 05:31] VITALS: BP 139/75; TEMP 97.2
[2020-12-13 05:32] LABS: ALANINE AMINOTRANSFERASE 20.6 U/L (0-35); ALBUMIN 3.05 g/dL (3.5-5.0); ALKALINE PHOSPHATASE 118.1 U/L (53-141); ASPARTATE AMINO TRANSFERASE 24.8 U/L (14-36); BILIRUBIN,TOTAL 0.23 mg/dL (0.2-1.3); BLOOD UREA NITROGEN 20.2 mg/dL (7-17); CALCIUM 7.75 mg/dL (8.4-10.2); CARBON DIOXIDE 31.5 mmol/L (22-30.0); CHLORIDE 104.2 mmol/L (98-107); CREATININE 0.74 mg/dL (0.60-1.30); GLUCOSE 96.9 mg/dL (74-106); POTASSIUM 3.72 mmol/L (3.5-5.1); SODIUM 137.3 mmol/L (134.5-145); TOTAL PROTEIN 5.16 g/dL (6.3-8.2)
[2020-12-13] MEDS: PROTONIX PO SCH (05:39)
--- NOTE | 2020-12-13 09:19 | PCM.PROG ---
Attending Provider: ATTENDING PROVIDER: Dr. JOAN WOLFE This patient is seen with Jessica Williamson, Nurse Practitioner. DATE OF SERVICE: 12/13/20 SUBJECTIVE: This 75 year old /WHITE F was hospitalized 12/08/20. The patient is resting comfortably. Shortness of breath significantly improved. Cough has improved. Still wearing oxygen. Will need three step prior to discharge. REVIEW OF SYSTEMS: CONSTITUTIONAL: No night sweats. No fatigue, malaise, lethargy. No fever or c hills. HEENT: Eyes: No visual changes. No eye pain. No eye discharge. ENT: No runny nose. No epistaxis. No sinus pain. No odynophagia. No congestion. RESPIRATORY: Cough, no congestion. No hemoptysis. No shortness of breath. CARDIOVASCULAR: No angina symptoms. No CHF symptoms. No atypical chest pain for CAD. No palpitations. No orthopnea.. GASTROINTESTINAL: No abdominal pain. No nausea or vomiting. No diarrhea or constipation. No hematemesis. No hematochezia. GENITOURINARY: No urgency. No frequency. No dysuria. No hematuria. No obstructive symptoms. No discharge. No pain. No significant abnormal bleeding. MUSCULOSKELETAL: No musculoskeletal pain; no joint swelling. NEUROLOGICAL: Awake, alert, confusion. No headache. No neck pain. No syncope. No seizures. No dizziness. PSYCHIATRIC: Not anxious. No depression. No suicidal thoughts. No homicidal thoughts. SKIN: No rash. No lesions. No wounds. ENDOCRINE: No unexplained weight loss. No weight gain. HEMATOLOGIC/LYMPHATIC: No anemia. No purpura. No petechiae. No prolonged or excessive bleeding. No palpable lymph nodes. PHYSICAL EXAMINATION: GENERAL: The patient is awake, alert and oriented, lying in bed in no distress. VITAL SIGNS: Temperature 97.2 F, Pulse 71, Respiratory Rate 18, BP 139/75, Pulse Ox 93% HEENT: Head normocephalic, atraumatic. Eyes: Extraocular muscles are intact. Pupils are equal, round and reactive to light and accommodation. Ears: No lesions. Nose appeared normal. Throat: No exudate or erythema. NECK: Supple. No JVD, no carotid bruit. No lymphadenopathy or thyromegaly. LUNGS: Diminished breath sounds. Clear to auscultation. Percussion note normal. Chest symmetrical. HEART: S1, S2, no S3. No murmurs. No cyanosis or clubbing. No ascites. Pulses: Dorsalis pedis and posterior tibial pulses +1 to +2 both sides. ABDOMEN: Soft. Non-tender. Bowel sounds active. No CVA tenderness. No mass felt. EXTREMITIES: No edema. Full range of motion of all extremities, equal. NEUROLOGIC: No focal deficit. Cranial nerves II through XII are grossly intact. No headache. No double vision. SKIN: Not dry. Intact. Turgor-normal. LYMPHATIC: No palpable lymph nodes/no lymphedema. MUSCULOSKELETAL: Normal joints with no swelling. Muscle tone is normal. LAB REVIEW: 12/13/20 04:40 12/13/20 04:40 12/13/20 04:40: Sodium 137.3, Potassium 3.72, Chloride 104.2, Carbon Dioxide 31.5 H, Anion Gap 5.32, BUN 20.2 H, Creatinine 0.74, Estimated GFR (MDRD) 76.00, BUN/Creatinine Ratio 27.29, Glucose 96.9, Calcium 7.75 L, Total Bilirubin 0.23, AST 24.8, ALT 20.6, Alkaline Phosphatase 118.1, Total Protein 5.16 L, Albumin 3.05 L, Globulin 2.11, Albumin/Globulin Ratio 1.44 12/13/20 04:40: WBC 13.59 H, RBC 4.36, Hgb 12.0, Hct 36.5 L, MCV 83.7, MCH 27.5, MCHC 32.9, RDW Coeff of Marli 16.1 H, Plt Count 262, Immature Gran % (Auto) 1.4, Neut % (Auto) 70.4, Lymph % (Auto) 21.6, [place] % (Auto) 4.5, Eos % (Auto) 1.8, Baso % (Auto) 0.3, Neut # (Auto) 9.6 H, Lymph # (Auto) 2.9, [place] # (Auto) 0.6, Eos # (Auto) 0.2, Baso # (Auto) 0.0, Immature Gran # (Auto) 0.2 ASSESSMENT: Please see below. 1. Acute bronchitis 2. Acute COPD exacerbation 3. Dementia PLAN: 1. Discharge back to assisted living 2. Prednisone 20mg daily for 5 days 3. Keflex 500mg BID for 5 days 4. Phenergan with Codeine one teaspoon at night 5. Three step prior to discharge 6. Proair inhaler two puffs BID Plan and coordination of the patient's care discussed in the presence of Potato Picker and nurse. SCRIBED BY: Yannick CALLOWAY scribed while in presence of service performed by Dr. Wolfe/Jessica Williamson APRN on 12/13/20 ([id number])
--- NOTE | 2020-12-13 09:48 | ECHO2D ---
Date of Exam: 12/11/2020 Ordering Physician: DR. JOAN WOLFE Room #: OP Reason for Echo: EXACERBATION CHF, COPD, HYPERLIPIDEMIA M-Mode Normal Adult Results LV Dimensions Normal Adult Results AoV Opening excursions >1.6 >1.6 LVEDD-base- 3.5-5.8 4.5 Ao root dimensions 2.0-3.7 3.2 LVESD-base- 3.1-4.6 L. Atrium dimensions 1.9-3.8 3.8 Post. Wall thickness 0.8-1.1 1.1 IV septum (thickness) 0.7-1.2 1.3 Post. Wall excursion 0.72-1.3 NORMAL Septal motion NORMAL Systolic motion R. Ventricular cavity 1.5-2.0 NORMAL LVEF 60% 66% Paradoxical septal wall motion NORMAL 2-D : 2-D M Mode Echocardiogram was performed using apical four chamber and left parasternal long and short axis views. Mitral, tricuspid and aortic valves appear to be normal. Contractility of the left ventricle seems to be normal, so is the cavity size. Left atrial cavity size and aortic root appear to be normal. There is no pericardial effusion. There is no thrombus noted in the left ventricle or left atrial cavity. M-MODE: MV: NORMAL AV: NORMAL TV: NORMAL PV: CHAMBER SIZE: NORMAL WALL MOTION: NORMAL PERICARDIUM: NORMAL INTERPRETATION: 1. LEFT VENTRICULAR HYPERTROPHY 2. NORMAL LEFT VENTRICLE SIZE AND CONTRACTILITY 3. NORMAL VALVES MTDD
[2020-12-13] MEDS: LOVENOX SUBCUT SCH (10:14)
[2020-12-13] MEDS: PROZAC PO SCH (10:15)
[2020-12-13] MEDS: PRAVACHOL PO SCH (10:15)
[2020-12-13] MEDS: ARICEPT PO SCH (10:15)
[2020-12-13] MEDS: K-DUR PO SCH (10:15)
[2020-12-13] MEDS: NAMENDA PO SCH (10:15)
[2020-12-13] MEDS: PREDNISONE PO SCH (10:15)
--- NOTE | 2020-12-13 11:21 | CM.DICTOOL ---
ADMISSION: 12/08/20 13:33 DISCHARGE: DECEMBER 13, 2020 DATE OF SERVICE: 12/13/20 FINAL DIAGNOSIS ACUTE ASTHMATIC BRONCHITIS (VIRAL) ACUTE COPD EXACERBATION PARAINFLUENZA HYPOKALEMIA, RESOLVED ALZHEIMERS DEMENTIA GERD DYSLIPIDEMIA ECHOCARDIOGRAM 12/2020 LVH LVEF 66% NORMAL VALVES, NORMAL LV CONTRACTILITY LAST VITALS Temp Pulse Resp BP Pulse Ox 97.2 F L 71 18 139/75 94 L 12/13/20 05:30 12/13/20 05:30 12/13/20 05:30 12/13/20 05:30 12/13/20 10:00 TAKE THESE MEDICATIONS AT HOME Donepezil HCl (Donepezil Hcl 10 Mg Tablet) 10 mg PO DAILY FOR[facility] Last Admin: 12/13/20 10:15 Dose: 10 mg Documented by: Fluoxetine HCl (Fluoxetine Hcl 20 Mg Capsule) 40 mg PO DAILY [facility] Last Admin: 12/13/20 10:15 Dose: 40 mg Documented by: Memantine (Memantine Hcl 10 Mg Tablet) 10 mg PO BID [facility] Last Admin: 12/13/20 10:15 Dose: 10 mg Documented by: Pravastatin Sodium (Pravastatin Sodium 40 Mg Tablet) 40 mg PO DAILY [facility] Last Admin: 12/13/20 10:15 Dose: 40 mg Documented by: Prednisone (Pred[facility]one 20 Mg Tablet) [facility] [place] [facility] Last Admin: 12/13/20 10:15 Dose: 20 mg Documented by: Promethazine HCl/Codeine (Promethazine/Codeine Syrup 6.25/10 Mg/5 Ml Disp.Sy ringe) 5 ml PO AT BEDTIME PRN (NEW RX) PRN Reason: Cough Last Admin: 12/12/20 20:48 Dose: 5 ml Documented by: KEFLEX 500 MG BID FOR 5 DAYS (NEW RX) PRO AIR HFA 2 PUFFS BID (NEW RX) PROTONIX 40 MG DAILY FOR 15 DAYS (NEW RX) ALLERGIES propoxyphene HCl [From Darvon] Adverse Reaction (Verified 12/08/20 09:49) DISCONTINUED MEDICATIONS NONE NEW PRESCRIPTIONS: KEFLEX 500 MG BID FOR 5 DAYS PREDNISONE 20 MG DAILY FOR 5 DAYS PRO AIR HFA 2 PUFFS BID PHENERGAN WITH CODEINE 1 TSP. AT BEDTIME PRN COUGH PROTONIX 40 MG DAILY FOR 15 DAYS ALL PRESCRIPTIONS CALLED TO [facility]) SMOKING: NOT APPLICABLE DISEASE SPECIFIC EDUCATION: PATIENT WITH ALZHEIMERS INSTRUCTION TO FAMILY (SON) REGARDING NEW MEDICATION, APPOINTMENTS LAB REVIEW: 12/13/20 04:40 12/13/20 04:40 12/13/20 04:40: Sodium 137.3, Potassium 3.72, Chloride 104.2, Carbon Dioxide 31.5 H, Anion Gap 5.32, BUN 20.2 H, Creatinine 0.74, Estimated GFR (MDRD) 76.00, BUN/Creatinine Ratio 27.29, Glucose 96.9, Calcium 7.75 L, Total Bilirubin 0.23, AST 24.8, ALT 20.6, Alkaline Phosphatase 118.1, Total Protein 5.16 L, Albumin 3.05 L, Globulin 2.11, Albumin/Globulin Ratio 1.44 12/13/20 04:40: WBC 13.59 H, RBC 4.36, Hgb 12.0, Hct 36.5 L, MCV 83.7, MCH 27.5, MCHC 32.9, RDW Coeff of Marli 16.1 H, Plt Count 262, Immature Gran % (Auto) 1.4, Neut % (Auto) 70.4, Lymph % (Auto) 21.6, Daniels % (Auto) 4.5, Eos % (Auto) 1.8, Baso % (Auto) 0.3, Neut # (Auto) 9.6 H, Lymph # (Auto) 2.9, Daniels # (Auto) 0.6, Eos # (Auto) 0.2, Baso # (Auto) 0.0, Immature Gran # (Auto) 0.2 PLAN: DISCHARGE TO [facility] DIET: REGULAR TOLERATED ACTIVITY: MAY RESUME TOLERATED USING ROLLATOR FOR AMBULATION TO DINING ROOM/HALLWAY AN APPOINTMENT IS SCHEDULED ON December AT 10:[address] WOLFE/ANTONI SALCIDO APRN/BELLE PATTON APRN CODE STATUS: DO NOT RESUSCITATE MS. BENAVIDES IS ALERT TO PERSON, PLACE. SHE IS DISORIENTED TO TIME, SITUATION. SHE IS PLEASANT AND COOPERATIVE. MS. BENAVIDES IS INDEPENDENT WITH ACTIVITIES OF DAILY LIVING. SHE AMBULATES IN THE ROOM, TO THE BATHROOM AND IN THE HALLWAY WITH USE OF A ROLLATOR AND STANDBY ASSISTANCE OF 1 STAFF MEMBER. HER GAIT IS STEADY, FAST PACED AT TIMES. MS. BENAVIDES HAS A GOOD APPETITE; CONSUMING 25-75% OF HER MEALS. LIQUID INTAKE IS GOOD. SHE IS CONTINENT OF BOWEL AND BLADDER, BUT WEARS DEPENDS UNDERGARMENTS DUE TO STRESS INCONTINENCE AND DRIBBLING. LAST BOWEL MOVEMENT NOTED ON THE 4TH. MS. BENAVIDES RESIDES AT [facility]. HER SON, OLIVERIO REPORTS HE DOES ALL MEDICATIONS FOR THE PATIENT AND WILL ENSURE SHE GETS HER NEW MEDICATIONS. [facility] [place], [place] AT HIS REQUEST. THE PATIENT HAS USED OXYGEN DURING HER HOSPITAL STAY. SHE WAS EVALUATED WITH A 3-STEP OXIMETRY TO DETERMINE IF THE NEED FOR OXYGEN AT DISCHARGE. OXYGEN SATURATION AT REST WAS 96% AND WITH EXERCISE WAS 94%. THE PATIENT DID NOT QUALIFY FOR HOME OXYGEN. MD ANTONI EAST, SETTER UP
--- NOTE | 2020-12-13 13:15 | PN ---
DATE OF SERVICE: 12/12/2020 SUBJECTIVE: 75 year old white female hospitalized with parainfluenza type III viral infection with wheezing. The patient's coughing is much less. The reflux treatment has worked along with antitussive. She is feeling somewhat better. Appetite has improved. REVIEW OF SYSTEMS: CONSTITUTIONAL: No night sweats. No fatigue, malaise, lethargy. No fever or chills. HEENT: Eyes: No visual changes. No eye pain. No eye discharge. ENT: No runny nose. No epistaxis. No sinus pain. No sore throat. No odynophagia. No congestion. RESPIRATORY: No cough, no congestion. No hemoptysis. No shortness of breath. CARDIOVASCULAR: No angina symptoms. No CHF symptoms. No atypical chest pain for CAD. No palpitations. No PND. No orthopnea. GASTROINTESTINAL: No abdominal pain. No nausea or vomiting. No diarrhea or constipation. No hematemesis. No hematochezia. GENITOURINARY: No urgency. No frequency. No dysuria. No hematuria. No obstructive symptoms. No discharge. No pain. No significant abnormal bleeding. MUSCULOSKELETAL: No musculoskeletal pain; no joint swelling. NEUROLOGICAL: No headache. No neck pain. No syncope. No seizures. No dizziness. PSYCHIATRIC: Not anxious. No depression. No suicidal thoughts. No homicidal thoughts. SKIN: No rash. No lesions. No wounds. ENDOCRINE: No unexplained weight loss. No weight gain. HEMATOLOGIC/LYMPHATIC: No anemia. No purpura. No petechiae. No prolonged or excessive bleeding. No palpable lymph nodes. PHYSICAL EXAMINATION: VITAL SIGNS: Temperature 97.7, pulse 70, respiratory rate 18, blood pressure 134/73 and pulse ox 97%. HEENT: Head normocephalic, atraumatic. Eyes: Extraocular muscles are intact. Pupils are equal, round and reactive to light and accommodation. Ears: No lesions. Nose appeared normal. Throat: No exudate or erythema. NECK: Supple. No JVD, no carotid bruit. No lymphadenopathy or thyromegaly. LUNGS: Decreased breath sounds but clear. Mild wheeze noted. Percussion note normal. Chest symmetrical. HEART: S1, S2, no S3. No murmurs. No cyanosis or clubbing. No ascites. Pulses: Dorsalis pedis and posterior tibial pulses +1 to +2 bilaterally. ABDOMEN: Soft. Nontender. Bowel sounds active. No CVA tenderness. No mass felt. EXTREMITIES: No edema. Full range of motion of all extremities, equal. NEUROLOGIC: No focal deficit. Cranial nerves II through XII are grossly intact. No headache. No double vision. SKIN: Not dry. Intact. Turgor - normal. LYMPHATIC: No palpable lymph nodes/no lymphedema. MUSCULOSKELETAL: Normal joints with no swelling. Muscle tone is normal. LABS: Echocardiogram done which showed normal LV contractility LVH. hgb 12.2, hct 37, WBC 13,000 normal differential, creatinine 0.8, BUN 23, potassium 2.9. ASSESSMENT: 1. Acute viral syndrome with bilateral wheezing with pneumonitis seems to be resolving 2. Dementia 3. Hypokalemia PLAN: 1. Give K-tab 20meq twice a day 2. Continue steroids, NEBS and antibiotics 3. Continue reflux measures. CONDITION: Stable. TIME SPENT: More than 30 minutes. Plan and coordination of the patient's care discussed in the presence of nurse. RAEANN
--- NOTE | 2020-12-13 13:38 | PN ---
DATE OF SERVICE: 12/11/20 SUBJECTIVE: The patient was seen and examined today. PHYSICAL EXAMINATION: VITAL SIGNS: Temperature 97.7, pulse 95, respiratory rate 18, blood pressure 148/72, pulse ox 97% HEENT: Head normocephalic, atraumatic. Eyes: Extraocular muscles are intact. Pupils are equal, round and reactive to light and accommodation. Ears: No lesions. Nose appeared normal. Throat: No exudate or erythema. NECK: Supple. No JVD, no carotid bruit. No lymphadenopathy or thyromegaly. LUNGS: Clear to auscultation. Percussion note normal. Chest symmetrical. HEART: S1, S2, no S3. No murmurs. No cyanosis or clubbing. No ascites. Pulses: Dorsalis pedis and posterior tibial pulses +1 to +2 bilaterally. ABDOMEN: Soft. Nontender. Bowel sounds active. No CVA tenderness. No mass felt. EXTREMITIES: No edema. Full range of motion of all extremities, equal. NEUROLOGIC: No focal deficit. Cranial nerves II through XII are grossly intact. No headache. No double vision. SKIN: Not dry. Intact. Turgor - normal. LYMPHATIC: No palpable lymph nodes/no lymphedema. MUSCULOSKELETAL: Normal joints with no swelling. Muscle tone is normal. LABS: Hemoglobin 12.5, hematocrit 37, WBC 16,000, normal differential. PLAN: 1. The patient's IV Solu-Cortef was discontinued. 2. She was started on Prednisone 20 daily. 3. Protonix 40 mg twice a day was added. Patient has dry cough. She is on antitussives, steroids, nebs. TIME SPENT: More than 30 minutes. Plan and coordination of the patient's care discussed in the presence of nurse. RAEANN
--- NOTE | 2020-12-13 13:42 | PN ---
DATE OF SERVICE: 12/12/20 SUBJECTIVE: 75-year-old white female hospitalized with parainfluenza virus, pneumonitis with wheezing. The patient's wheezing seems to have improved but her coughing is still present. Appetite has improved. REVIEW OF SYSTEMS: CONSTITUTIONAL: No night sweats. No fatigue, malaise, lethargy. No fever or chills. HEENT: Eyes: No visual changes. No eye pain. No eye discharge. ENT: No runny nose. No epistaxis. No sinus pain. No sore throat. No odynophagia. No congestion. RESPIRATORY: Cough, congestion. No hemoptysis. No shortness of breath. CARDIOVASCULAR: No angina symptoms. No CHF symptoms. No atypical chest pain for CAD. No palpitations. No PND. No orthopnea. GASTROINTESTINAL: No abdominal pain. No nausea or vomiting. No diarrhea or constipation. No hematemesis. No hematochezia. GENITOURINARY: No urgency. No frequency. No dysuria. No hematuria. No obstructive symptoms. No discharge. No pain. No significant abnormal bleeding. MUSCULOSKELETAL: No musculoskeletal pain; no joint swelling. NEUROLOGICAL: No headache. No neck pain. No syncope. No seizures. No dizziness. PSYCHIATRIC: Not anxious. No depression. No suicidal thoughts. No homicidal thoughts. SKIN: No rash. No lesions. No wounds. ENDOCRINE: No unexplained weight loss. No weight gain. HEMATOLOGIC/LYMPHATIC: No anemia. No purpura. No petechiae. No prolonged or excessive bleeding. No palpable lymph nodes. PHYSICAL EXAMINATION: HEENT: Head normocephalic, atraumatic. Eyes: Extraocular muscles are intact. Pupils are equal, round and reactive to light and accommodation. Ears: No lesions. Nose appeared normal. Throat: No exudate or erythema. NECK: Supple. No JVD, no carotid bruit. No lymphadenopathy or thyromegaly. LUNGS: Bilateral expiratory wheeze, mild. Percussion note normal. Chest symmetrical. HEART: S1, S2, no S3. No murmurs. No cyanosis or clubbing. No ascites. Pulses: Dorsalis pedis and posterior tibial pulses +1 to +2 bilaterally. ABDOMEN: Soft. Nontender. Bowel sounds active. No CVA tenderness. No mass felt. EXTREMITIES: No edema. Full range of motion of all extremities, equal. NEUROLOGIC: No focal deficit. Cranial nerves II through XII are grossly intact. No headache. No double vision. SKIN: Not dry. Intact. Turgor - normal. LYMPHATIC: No palpable lymph nodes/no lymphedema. MUSCULOSKELETAL: Normal joints with no swelling. Muscle tone is normal. ASSESSMENT: 1. COPD exacerbation seems to be resolving. PLAN: 1. Start Prednisone and Protonix. 2. Continue antibiotics and nebs. TIME SPENT: More than 30 minutes. Plan and coordination of the patient's care discussed in the presence of nurse. RAEANN
--- NOTE | 2020-12-14 10:33 | HP ---
DATE OF SERVICE: HISTORY OF PRESENT ILLNESS: This is a white female who is a resident at [facility] who presented to the emergency room with cough, congestion. PAST MEDICAL HISTORY: Alzheimer's dementia GERD Dyslipidemia Anxiety COPD LVH PAST SURGICAL HISTORY: Breast augmentation REVIEW OF SYSTEMS: CONSTITUTIONAL: No night sweats. No fatigue, malaise, lethargy. No fever or chills. HEENT: Eyes: No visual changes. No eye pain. No eye discharge. ENT: No runny nose. No epistaxis. No sinus pain. No sore throat. No odynophagia. No ear pain. No congestion. RESPIRATORY: No hemoptysis. Positive for shortness of breath and cough. CARDIOVASCULAR: No angina symptoms. No CHF symptoms. No atypical chest pain for CAD. No palpitations. No PND. No orthopnea. GASTROINTESTINAL: No abdominal pain. No nausea or vomiting. No diarrhea or constipation. No hematemesis. No hematochezia. GENITOURINARY: No urgency. No frequency. No dysuria. No hematuria. No obstructive symptoms. No discharge. No pain. No significant abnormal bleeding. MUSCULOSKELETAL: No musculoskeletal pain. No joint swelling. No arthritis. NEUROLOGICAL: No headache. No neck pain. No syncope. No seizures. No dizziness. PSYCHIATRIC: Not anxious. No depression. No suicidal thoughts. No homicidal thoughts. SKIN: No rash. No lesions. No wounds. ENDOCRINE: No unexplained weight loss. No weight gain. HEMATOLOGIC/LYMPHATIC: No anemia. No purpura. No petechiae. No prolonged or excessive bleeding. No palpable lymph nodes. PERSONAL/FAMILY/SOCIAL HISTORY: She is , lives at assisted living. She is unable to manage her medications. Her son does that for her. Nonsmoker. No alcohol or illicit drug use. MEDICATIONS: Fluoxetine 40 mg p.o. daily Donepezil (Aricept) 10 mg p.o. daily Memantine (Namenda) 10 mg p.o. b.i.d. Pravastatin 40 mg p.o. daily ALLERGIES: PROPOXYPHENE PHYSICAL EXAMINATION: GENERAL: The patient is alert and oriented to person and place, not time. VITAL SIGNS: HEENT: Head normocephalic, atraumatic. Eyes: Extraocular muscles are intact. Pupils are equal, round and reactive to light and accommodation. Ears: No lesions. Nose appeared normal. Throat: No exudate or erythema. NECK: Supple. No JVD, no carotid bruit. No lymphadenopathy or thyromegaly. LUNGS: Diminished breath sounds with bilateral inspiratory and expiratory wheezing. Clear to auscultation. Percussion note normal. Chest symmetrical. HEART: S1, S2, no S3. No murmur. No cyanosis or clubbing. No ascites. Pulses: Dorsalis pedis and posterior tibial pulses +1 to +2 bilaterally. ABDOMEN: Soft. Nontender. Bowel sounds active. No CVA tenderness. No mass felt. EXTREMITIES: No leg edema. Full range of motion of all extremities, equal. NEUROLOGIC: No focal deficit. Cranial nerves II through XII are grossly intact. No headache, no double vision or headache. SKIN: Not dry. Intact. Turgor - normal. LYMPHATIC: No palpable lymph nodes/no lymphedema. MUSCULOSKELETAL: Normal joints with no swelling. Muscle tone is normal. Chest x-ray shows no acute process. ABGs on room air: pH 7.43, pc02 40, p02 63, bicarb 26.5, 02 sat 92.4%. Sodium 139, potassium 4.05, BUN 14, creatinine 1.04, AST 31, ALT 21. White count 11.8, hemoglobin 14, hematocrit 43.3, platelets 288, alkaline phosphatase 155. D. dimer 786. Respiratory panel by PCR is positive for parainfluenza virus. ASSESSMENT: 1. ACUTE COPD EXACERBATION. 2. SHORTNESS OF BREATH. 3. POSITIVE PARAINFLUENZA. PLAN: 1. We will admit. 2. Routine telemetry orders. 3. CBC, CMP daily. 4. Continue all home medications. 5. Oxygen at 1 to 2L via nasal cannula. 6. Rocephin 1 gm IV daily. 7. Solu-Cortef 125 IV q.8hr. 8. Regular diet. 9. Phenergan with Codeine cough syrup one teaspoon t.i.d. p.r.n. 10. Albuterol neb t.i.d. RK. 11. Will follow closely. TIME SPENT: More than 70 minutes. MTDD
--- NOTE | 2020-12-14 13:23 | DS ---
DATE OF SERVICE: 12/13/2020 FINAL DIAGNOSIS: ACUTE ASTHMATIC BRONCHITIS (VIRAL) ACUTE COPD EXACERBATION PARAINFLUENZA HYPOKALEMIA, RESOLVED ALZHEIMER DEMENTIA GERD DYSLIPIDEMIA ECHOCARDIOGRAM 12/2020 LVH LVEF 66% NORMAL VALVES, NORMAL LV CONTRACTILITY LAST VITALS: Temp Pulse Resp BP Pulse Ox 97.2 F L 71 18 139/75 94 L 12/13/20 05:30 12/13/20 05:30 12/13/20 05:30 12/13/20 05:30 12/13/20 10:00 DISCHARGE INSTRUCTIONS: DISCHARGE TO [facility]. AN APPOINTMENT IS SCHEDULED ON December AT 10:[address] WOLFE/ANTONI SALCIDO APRN/BELLE PATTON APRN. CODE STATUS: DO NOT RESUSCITATE. TAKE THESE MEDICATIONS AT HOME: Donepezil HCl (Donepezil Hcl 10 Mg Tablet) 10 mg PO DAILY [facility] Last Admin: 12/13/20 10:15 Dose: 10 mg Documented by: Fluoxetine HCl (Fluoxetine Hcl 20 Mg Capsule) 40 mg PO DAILY [facility] Last Admin: 12/13/20 10:15 Dose: 40 mg Documented by: Memantine (Memantine Hcl 10 Mg Tablet) 10 mg PO BID [facility] Last Admin: 12/13/20 10:15 Dose: 10 mg Documented by: Pravastatin Sodium (Pravastatin Sodium 40 Mg Tablet) 40 mg PO DAILY [facility] Last Admin: 12/13/20 10:15 Dose: 40 mg Documented by: Prednisone (Prednisone 20 Mg Tablet) 20 mg PO DAILYWM [facility] (NEW RX FOR 5 DAYS) Last Admin: 12/13/20 10:15 Dose: 20 mg Documented by: Promethazine HCl/Codeine (Promethazine/Codeine Syrup 6.25/10 Mg/5 Ml Disp.Syringe) 5 ml PO AT BEDTIME PRN (NEW RX) PRN Reason: Cough Last Admin: 12/12/20 20:48 Dose: 5 ml Documented by: KEFLEX 500 MG BID FOR 5 DAYS (NEW RX) PRO AIR HFA 2 PUFFS BID (NEW RX) PROTONIX 40 MG DAILY FOR 15 DAYS (NEW RX) ALLERGIES: propoxyphene HCl [From Darvon] Adverse Reaction (Verified 12/08/20 09:49) DISCONTINUED MEDICATIONS: NONE NEW PRESCRIPTIONS: KEFLEX 500 MG BID FOR 5 DAYS PREDNISONE 20 MG DAILY FOR 5 DAYS PRO AIR HFA 2 PUFFS BID PHENERGAN WITH CODEINE 1 TSP. AT BEDTIME PRN COUGH PROTONIX 40 MG DAILY FOR 15 DAYS [facility]CRIPT[facility] SMOKING: NOT APPLICABLE DISEASE SPECIFIC EDUCATION: PATIENT WITH ALZHEIMERS INSTRUCTION TO FAMILY (SON) REGARDING NEW MEDICATION, APPOINTMENTS LAB REVIEW: 12/13/20 04:40 12/13/20 04:40 12/13/20 04:40: Sodium 137.3, Potassium 3.72, Chloride 104.2, Carbon Dioxide 31.5 H, Anion Gap 5.32, BUN 20.2 H, Creatinine 0.74, Estimated GFR (MDRD) 76.00, BUN/Creatinine Ratio 27.29, Glucose 96.9, Calcium 7.75 L, Total Bilirubin 0.23, AST 24.8, ALT 20.6, Alkaline Phosphatase 118.1, Total Protein 5.16 L, Albumin 3.05 L, Globulin 2.11, Albumin/Globulin Ratio 1.44 12/13/20 04:40: WBC 13.59 H, RBC 4.36, Hgb 12.0, Hct 36.5 L, MCV 83.7, MCH 27.5, MCHC 32.9, RDW Coeff of Marli 16.1 H, Plt Count 262, Immature Gran % (Auto) 1.4, Neut % (Auto) 70.4, Lymph % (Auto) 21.6, [place] % (Auto) 4.5, Eos % (Auto) 1.8, Baso % (Auto) 0.3, Neut # (Auto) 9.6 H, Lymph # (Auto) 2.9, King[place] # (Auto) 0.6, Eos # (Auto) 0.2, Baso # (Auto) 0.0, Immature Gran # (Auto) 0.2 DIET: REGULAR TOLERATED ACTIVITY: MAY RESUME TOLERATED USING ROLLATOR FOR AMBULATION TO DINING ROOM/[facility] [facility] COURSE: 75 year old white female who presented with shortness of breath. She has been coughing and congested for several days. She had a low grade fever. She tested positive for parainfluenza virus in ER. She was wheezing significantly. She was admitted and place on Rocephin IV along with Solu-Cortef and started on NEBS treatments TID. Over the course of the next several days her cough and wheezing had steadily improved. She is still coughing today but is less productive. Sputum culture was negative. Showed normal loretta. Dr. Wolfe did perform an echo which showed ejection fraction of 66%, normal valve and normal contractility. She does have Alzheimer's Dementia and a resident at [facility]. She was capable of doing a inhaler so we are going to send her home with an inhaler to do three times a day along with Keflex 500mg BID for the next 5 days and Prednisone 20mg daily for 5 days. She will also have Phenergan with Codeine she can take at bedtime. She will be discharged today in stable condition. Her son was present for round this morning and agreeable with discharge. She passed a three step and does not require home oxygen. We will followup with her in the office next week. TIME SPENT: More than 60 minutes. RAEANN
--- NOTE | 2020-12-15 09:46 | PN ---
DATE OF SERVICE: 12/13/2020 SUBJECTIVE: The patient was seen and examined with the Nurse Practitioner. The patient's bronchitis and parainfluenza infection seems to have resolved. She still mild dry cough being treated steroids and antibiotics as outpatient along with antireflux measures. The patient's echo was normal. Discharge summary was done with the Nurse Practitioner. TIME SPENT: More than 30 minutes. Plan and coordination of the patient's care discussed in the presence of nurse. RAEANN
--- NOTE | 2020-12-15 09:47 | PN ---
12/08/2020: Level 5 12/09/2020: Intermediate 12/10/2020: Intermediate 12/11/2020: Intermediate 12/12/2020: Intermediate 12/13/2020: D as in discharge MTDD
== END 2020-12-13 12:55 | disposition home or self-care (01) | DRG 190 ==
LOC: ED 09:33 → MEDSURG A 13:33
PROVIDERS: ADMIT Internal Medicine; ATTEND Internal Medicine
DX: J45.901 Unspecified asthma with (acute) exacerbation; R06.00 Dyspnea, unspecified; F02.80 Dementia in other diseases classified elsewhere, unspecified severity, without behavioral disturbance, psychotic disturbance, mood disturbance, and anxiety; G30.9 Alzheimer's disease, unspecified; R06.2 Wheezing; Z20.822 Contact with and (suspected) exposure to COVID-19; R05 Cough; J44.0 Chronic obstructive pulmonary disease with (acute) lower respiratory infection; B34.9 Viral infection, unspecified; J12.2 Parainfluenza virus pneumonia; E78.5 Hyperlipidemia, unspecified; K21.9 Gastro-esophageal reflux disease without esophagitis; E87.6 Hypokalemia; R06.02 Shortness of breath

== ENCOUNTER 2024-03-04 15:56 | Inpatient (IN) ==
--- NOTE | 2024-03-04 16:07 | ED.PDOC ---
General ED Provider: Dr. YANICK MARCANO MD Chief Complaint: Cough Stated Complaint: Patient is a 78-year-old female that was brought to the emergency department by her family for shortness of breath. They stated the patient has a history of COPD and every year about this time patient gets short of breath and requires treatment by the hospital. They stated that today she has been very listless and fatigued. They stated that she is slurring her words and appears to be short of breath. They stated that she has had a productive cough. They do not know if she has been around any other sick contacts. Patient has not had anything to help rafat her symptoms. She states that ambulation and exertion makes her symptoms worse. She states that nothing makes her symptoms better. They denied the patient having any other acute symptoms not currently mentioned in the HPI. Patient's GCS is 12. Time Seen by Provider: 03/04/24 15:58 Mode of Arrival: Wheelchair Information Source: Patient Exam Limitations: No limitations Primary Care Provider: JOAN WOLFE MD Nursing and Triage Documentation Reviewed and Agree: Yes Does Patient Take Opioids?: No Is Patient Opioid Naive?: No What is Opioid Naive?: *Opioid Naive implies the patient is not already taking opioids or not chronically receiving opioids on a daily basis. *PRN dosing is not "usually" associated with tolerance. *Patients are at higher risk of over-sedation and aspiration. Is Patient Opioid Tolerant?: No What is Opioid Tolerant?: *Opioid Tolerance implies less than the expected response to an opioid. *Acquired tolerance is defined by the patient taking 60mg of oral morphine daily (or equianalgesic dose of another opioid) for 1 week or more. *Often associated with chronic pain. *May take more than usual dose to achieve desired pain control. Review of Systems Review Of Systems Constitutional: Reports No symptoms Eyes: Reports No symptoms Ears, Nose, Mouth, Throat: Reports No symptoms Respiratory: Reports Cough, Shortness of Breath and Wheezing Cardiac: Reports No symptoms GI: Reports No symptoms : Reports No symptoms Musculoskeletal: Reports No symptoms Skin: Reports No symptoms Neurological: Reports No symptoms and Cognitive dysfunction Endocrine: Reports No symptoms Hematologic/Lymphatic: Reports No symptoms All Other Systems: Reviewed and Negative [facility] Medical History Acute asthmatic bronchitis J45.909 - Unspecified asthma, uncomplicated (ICD-10) COPD exacerbation J44.1 - Chronic obstructive pulmonary disease with (acute) exacerbation (ICD-10) CHF exacerbation I50.9 - Heart failure, unspecified (ICD-10) Gastroesophageal reflux disease K21.9 - Gastro-esophageal reflux disease without esophagitis (ICD-10) Early onset Alzheimer's dementia G30.0 - Alzheimer's disease with early onset (ICD-10) Hyperlipidemia E78.5 - Hyperlipidemia, unspecified (ICD-10) Arthritis M19.90 - Unspecified osteoarthritis, unspecified site (ICD-10) Memory loss R41.3 - Other amnesia (ICD-10) History of TIAs Z86.73 - Personal history of transient ischemic attack (TIA), and cerebral infarction without residual deficits (ICD-10) Allergic sinusitis J30.9 - Allergic rhinitis, unspecified (ICD-10) Family History FATHER Cerebrovascular accident Mother Cerebrovascular accident Social History (Updated 11/11/23 @ 14:43 by SANTOS MARTÍNEZ) Smoking and tobacco status: Former smoker Alcohol intake: never Substance use type: does not use Special medina needs: No Agree to transfusion: Yes Adopted: No Caregiver/support person: No Foster care: No Household members: family Housing: house Lives independently: Yes Daycare: no daycare Number of children: 2 service: No History of recent travel: No Do you think of yourself as: straight/heterosexual Current gender identity: female Seatbelt use: always Drives intoxicated or rides with intoxicated ambulette driver: No Water heater temperature set < 120 degrees: Yes Working smoke detector in home: Yes Fire extinguisher in home: Yes Carbon monoxide detector in home: Yes Surgical History History of breast implant Z98.82 - Breast implant status (ICD-10) History of musculoskeletal system surgery right knee Z98.890 - Other specified postprocedural states (ICD-10) Status post hysterectomy Z90.710 - Acquired absence of both cervix and uterus (ICD-10) Status post tonsillectomy and adenoidectomy Z90.89 - Acquired absence of other organs (ICD-10) Female Reproductive History Menstrual Hx Hysterectomy: Yes Hx Tubal Ligation: No Physical Exam Physical Exam Appearance: Reports Ill-appearing and Obese (Elderly white female) Ill-appearing: Mild Pain Distress: None Eyes: Reports MAYUR, EOMI and Conjunctiva clear ENT: Reports Ears normal, Nose normal and Oropharynx normal Neck: Nonsupple Respiratory: Reports Airway patent, Breath sounds diminished and Wheezes Cardiovascular: Reports RRR, Pulses normal and No rub GI/: Reports Soft, Nontender, No masses and Bowel sounds normal Musculoskeletal: Reports Normal strength, ROM intact, No edema, No calf tenderness and Limited ROM Skin: Reports Warm, Dry, Normal color and Pale Neurological: Reports Sensation intact, Motor intact, Cranial nerves intact, Alert and Alert to pain Psychiatric: Reports Affect appropriate, Mood appropriate and Anxious Critical Care Note Critical Care Note Total Critical Care Time (mins): 60 Comments: Critical Care Procedure Note Authorized and Performed by:Dr. Yanick Marcano MD, MPH Total critical care time:60minutes Due to a high probability of clinically significant, life threatening deterioration, the patient required my highest level of preparedness to intervene emergently and I personally spent this critical care time directly and personally managing the patient. This critical care time included obtaining a history; examining the patient; pulse oximetry; ordering and review of studies; arranging urgent treatment with development of a management plan; evaluation of patient's response to treatment; frequent reassessment; and, discussions with other providers. This critical care time was performed to assess and manage the high probability of imminent, life-threatening deterioration that could result in multi-organ failure. It was exclusive of separately billable procedures and treating other patients and teaching time. Please see MDM section and the rest of the note for further information on patient assessment and treatment. Course Course 03/04/24 16:13 03/04/24 16:13 Orders, Labs, Meds: Lab Review 03/04/24 03/04/24 03/04/24 16:13 16:15 16:26 WBC 10.16 RBC 5.50 H Hgb 14.9 Hct 45.3 MCV 82.4 MCH 27.1 MCHC 32.9 RDW Coeff of Marli 14.5 Plt Count 305 Immature Gran % (Auto) 0.4 Neut % (Auto) 78.7 H Lymph % (Auto) 13.3 [place] % (Auto) 6.2 Eos % (Auto) 1.2 Baso % (Auto) 0.2 Neut # (Auto) 8.0 H Lymph # (Auto) 1.4 [place] # (Auto) 0.6 Eos # (Auto) 0.1 Baso # (Auto) 0.0 Immature Gran # (Auto) 0.0 Puncture Site R brach Base Excess 2.4 O2 Saturation 93.5 L ABG pH 7.52 H* ABG pCO2 31.0 L ABG pO2 61.0 L ABG HCO3 25.3 ABG Total CO2 26.3 H Hemoglobin 0.8 Oxyhemoglobin 92.4 L Carboxyhemoglobin 1.0 Total Hemoglobin 14.6 FiO2 % 21.0 Sodium 137.0 Potassium 3.59 Chloride 103.0 Carbon Dioxide 20.7 L Anion Gap 16.89 BUN 10.9 Creatinine 0.80 Estimated GFR (MDRD) 69.00 BUN/Creatinine Ratio 13.62 Glucose 152.2 H Lactic Acid 3.29 H Calcium 9.16 Magnesium 2.27 Total Bilirubin 1.06 AST 27.2 ALT 18.5 Alkaline Phosphatase 136.9 Troponin I < 0.012 Total Protein 7.08 Albumin 4.25 Globulin 2.83 Albumin/Globulin Ratio 1.50 Influ A Molecular Assay Negative by naat Influ B Molecular Assay Negative by naat RSV Antigen Negative by naat SARS CoV-2 RNA Rapid FRANCISCO Negative Orders Category Date Time Status ABG DRAW REQUEST Stat CARDIO 03/04/24 15:58 Completed EKG-(ED ONLY) Stat CARDIO 03/04/24 15:58 Completed NEBULIZER TREATMENT Stat CARDIO 03/04/24 16:00 Completed NEBULIZER TREATMENT Stat CARDIO 03/04/24 16:01 Completed APPLY [ED APPLY O2] .ONCE EMERGENCY 03/04/24 15:58 Active ABG COOX Stat LAB 03/04/24 16:15 Completed BLOOD CULTURE (ED ONLY) Stat LAB 03/04/24 16:13 Received CBC W/ AUTO DIFF Stat LAB 03/04/24 16:13 Completed CMP [COMPREHENSIVE METABOLIC PANEL] Stat LAB 03/04/24 16:13 Completed COVID [SARS COV-2 RNA RAPID FRANCISCO] Stat LAB 03/04/24 16:26 Completed FLU A & B MOLECULAR [FLU A/B MOLECULAR] Stat LAB 03/04/24 16:26 Completed LACTIC ACID Stat LAB 03/04/24 16:13 Completed MAGNESIUM Stat LAB 03/04/24 16:13 Completed RAPID STREP SCREEN [MOLECULAR GROUP A STREP] Stat LAB 03/04/24 16:26 Completed RSV Stat LAB 03/04/24 16:26 Completed TROPONIN I Stat LAB 03/04/24 16:13 Completed Ipratropium/Albuterol Neb [Duoneb] Meds 03/04/24 15:58 Discontinued 3 ml NEB ONCE STA Ipratropium/Albuterol Neb [Duoneb] Meds 03/04/24 16:01 Discontinued 3 ml NEB ONCE STA Methylprednisolone Sod Succ/Pf [Solu-Medrol 125 mg] Meds 03/04/24 15:58 Discontinued 125 mg IVP ONCE ONE Piperacillin Sodium/Tazobactam [Zosyn 3.375 gm] 3.375 Meds 03/04/24 16:59 Active gm 0.9 % Sodium Chloride [Sodium Chloride 100Ml] 100 ml IV ONCE Sodium Chloride 0.9% [Sodium Chloride] 1,000 ml Meds 03/04/24 15:58 Discontinued IV BOLUS Sodium Chloride 0.9% [Sodium Chloride] 1,000 ml Meds 03/04/24 17:06 Active IV BOLUS CHEST, 1V AP ONLY Stat RADS 03/04/24 15:58 Taken Medications Generic Name Dose Route Start Last Admin Trade Name Freq PRN Reason Stop Dose Admin Piperacillin Sod/Tazobactam 100 mls @ 200 mls/hr 03/04/24 16:59 Sod 3.375 gm/ Sodium Chloride IV 03/04/24 17:28 ONCE ONE Sodium Chloride 1,000 mls @ 1,000 mls/hr 03/04/24 17:06 Sodium Chloride IV 03/04/24 18:05 BOLUS ONE Discontinued Medications Generic Name Dose Route Start Last Admin Trade Name Freq PRN Reason Stop Dose Admin Albuterol/Ipratropium 3 ml 03/04/24 15:58 03/04/24 16:22 Ipratropium/Albuterol Vial.Neb NEB 03/04/24 15:59 3 ml ONCE STA Administration Albuterol/Ipratropium 3 ml 03/04/24 16:01 03/04/24 16:31 Ipratropium/Albuterol Vial.Neb NEB 03/04/24 16:02 3 ml ONCE STA Administration Sodium Chloride 1,000 mls @ 1,000 mls/hr 03/04/24 15:58 03/04/24 16:48 Sodium Chloride IV 03/04/24 16:57 1,000 mls/hr BOLUS ONE Administration Methylprednisolone Sodium Succinate 125 mg 03/04/24 15:58 03/04/24 16:51 Methylprednisolone Sod Succ/Pf 125 Mg/2 Ml Vial IVP 03/04/24 15:59 125 mg ONCE ONE Administration Vital Signs: Temp Pulse Resp BP Pulse Ox O2 Flow Rate 03/04/24 17:02 3 03/04/24 17:01 3 03/04/24 16:02 98.3 F 107 H 20 152/71 H 92 L Discharge Plan Discharge Patient Disposition: PLACED OBSERVATION Discharge Problem: Acute alteration in mental status, Acute exacerbation of chronic obstructive pulmonary disease, Acute hypoxemic respiratory failure, Sepsis, Community acquired bacterial pneumonia Did you review [place] [employer]IMAL RIDES MANAGER for ALL controlled substances?: Not Applicable ED Provider: YANICK MARCANO Condition: Stable Physician Progress Note: Patient is a 78-year-old female that was brought to the emergency department by her family for shortness of breath. They stated the patient has a history of COPD and every year about this time patient gets short of breath and requires treatment by the hospital. They stated that today she has been very listless and fatigued. They stated that she is slurring her words and appears to be short of breath. They stated that she has had a productive cough. They do not know if she has been around any other sick contacts. Patient has not had anything to help rafat her symptoms. She states that ambulation and exertion makes her symptoms worse. She states that nothing makes her symptoms better. They denied the patient having any other acute symptoms not currently mentioned in the HPI. Patient's GCS is 12. -Due to patient's current condition we will give the patient a DuoNeb treatment x 2, IV methylprednisolone 125 mg. -Will give the patient IV normal saline 1 L bolus for dehydration. -Will order an EKG, chest x-ray, and troponin. Will also order baseline labs. -Will order lactic acid and blood cultures. -Due to the patient's current respiratory status and altered mental status will order an ABG as well. -ABG prior to oxygenation showed a pH of 7.52, pCO2 31, pO2 61, bicarb 25.3. -Patient's O2 has been in the low 90s and upper 80s. Will place patient on nasal cannula at 3 L. -Nasal cannula at 3 L is keeping the patient's O2 sat between 95 and 97%. -Patient's CBC showed a leukocytosis with elevated neutrophils. -Due to patient's leukocytosis and current upper respiratory infection with acute hypoxemic respiratory failure will empirically treat with Zosyn 3.375 g. -Lactate is 3.29. Will continue patient's sepsis IV normal saline bolus of 2 L (per her 30 mL/kg). CMP unremarkable. -EKG shows normal sinus rhythm with a rate of 95 bpm. Patient has left axis deviation. No acute ST elevations noted. -Patient has a bilateral pneumonia found on chest x-ray. This was interpreted by the ER physician. -Will contact the hospitalist for admission for this patient. ([id number]) spoke to hospitalist, Eleno Belcher NP and discussed the patient's acute hypoxemic respiratory failure, sepsis with COPD exacerbation and community- acquired pneumonia. Discussed with her her current treatment of 2 DuoNebs, methylprednisolone, and Zosyn. I also discussed the patient being on 3 L nasal cannula with her O2 sat of 97% currently. She has agreed admit the patient for observation.
[2024-03-04 16:21] LABS: BASOPHILS % (AUTO) 0.2 % (0.0-3.0); EOSINOPHILS # (AUTO) 0.1 K/ul (0.0-0.7); EOSINOPHILS % (AUTO) 1.2 % (0.0-7.0); HEMATOCRIT 45.3 % (37.0-47.0); HEMOGLOBIN 14.9 g/dl (12.0-16.0); IMMATURE GRANULOCYTE % (AUTO) 0.4 % (0.0-5.0); LYMPHOCYTES # (AUTO) 1.4 K/uL (0.60-3.4); LYMPHOCYTES % (AUTO) 13.3 (10.0-50.0); MEAN CORPUSCULAR HEMOGLOBIN 27.1 pg (27.0-31.0); MEAN CORPUSCULAR HGB CONC 32.9 (31.8-35.4); MEAN CORPUSCULAR VOLUME 82.4 fl (81.0-99.0); MONOCYTES # (AUTO) 0.6 K/uL (0.4-2.0); MONOCYTES % (AUTO) 6.2 (0-10); NEUTROPHILS % (AUTO) 78.7 % (42.2-75.2); PLATELET COUNT 305 10^3/uL (140-440); RDW COEFFICIENT OF VARIATION 14.5 % (11.6-14.8); WHITE BLOOD COUNT 10.16 K/ul (4.6-10.2)
[2024-03-04] MEDS: DUONEB NEB STA ×2 (16:22→16:31)
[2024-03-04 16:28] LABS: ABG O2 HGB 92.4 % (95-100); BEecf 2.4 (-2.0-3.0); HCO3 25.3 (21-28); MetHb 0.8 (0-1.5); TCO2 26.3 (19-24); sO2 93.5 % (94-98); tHb 14.6 g/dl (11.7-17.4)
[2024-03-04 16:43] LABS: ALANINE AMINOTRANSFERASE 18.5 U/L (0-35); ALBUMIN 4.25 g/dL (3.5-5.0); ALKALINE PHOSPHATASE 136.9 U/L (53-141); ASPARTATE AMINO TRANSFERASE 27.2 U/L (14-36); BILIRUBIN,TOTAL 1.06 mg/dL (0.2-1.3); BLOOD UREA NITROGEN 10.9 mg/dL (7-17); CALCIUM 9.16 mg/dL (8.4-10.2); CARBON DIOXIDE 20.7 mmol/L (22-30.0); GLUCOSE 152.2 mg/dL (74-106); MAGNESIUM 2.27 mg/dL (1.6-2.3); POTASSIUM 3.59 mmol/L (3.5-5.1); TOTAL PROTEIN 7.08 g/dL (6.3-8.2)
[2024-03-04 16:46] LABS: SARS COV-2 RNA RAPID NAAT NEGATIVE (NEGATIVE)
[2024-03-04 16:47] LABS: MOLECULAR FLU A NEGATIVE BY NAAT (NEGATIVE); MOLECULAR FLU B NEGATIVE BY NAAT (NEGATIVE); RSV MOLECULAR NEGATIVE BY NAAT (NEGATIVE)
[2024-03-04] MEDS: SODIUM CHLORIDE 1,000 ML IV ONE ×2 (16:48→20:07)
[2024-03-04 16:50] LABS: ABG PH 7.52 (7.35-7.45)
[2024-03-04] MEDS: SOLU-MEDROL 125 MG IVP ONE (16:51)
[2024-03-04 16:57] LABS: TROPONIN I < 0.012 ng/ml (0.0000-0.120)
[2024-03-04] MEDS: ZOSYN 3.375 GM 3.375 GM in SODIUM CHLORIDE 100ML 100 ML IV ONE (17:30)
--- NOTE | 2024-03-04 17:32 | DI ---
EXAM: CHEST FRONTAL VIEW HISTORY: Shortness of breath COMPARISON: 12/08/2020 IMPRESSION: There is partial consolidation in the lower aspect of the right upper lobe. Similar density is seen in the mid lateral left lung. These may represent areas of pneumonia given patient history. Lungs a re otherwise clear. Heart size is upper limit normal in stable. Follow-up chest imaging is recommen ded. - - - - -
[2024-03-04] MEDS ORDERED: TYLENOL PO PRN (18:02)
[2024-03-04] MEDS ORDERED: ALBUTEROL 0.083% NEB NEB PRN (18:02)
[2024-03-04 18:30] VITALS: BMI 29.0
[2024-03-04] MEDS: LOVENOX SUBCUT SCH (20:07)
[2024-03-04] MEDS: NAMENDA PO SCH (20:07)
[2024-03-04] MEDS: DUONEB NEB SCH (23:27)
[2024-03-04] MEDS: ZOSYN 3.375 GM 3.375 GM in SODIUM CHLORIDE 100ML 100 ML IV SCH (23:38)
[2024-03-05] MEDS: SOLU-MEDROL 40 MG IVP SCH (01:04)
[2024-03-05 05:33] LABS: EOSINOPHILS % (AUTO) 0.2 % (0.0-7.0); HEMOGLOBIN 12.7 g/dl (12.0-16.0); IMMATURE GRANULOCYTE % (AUTO) 0.7 % (0.0-5.0); LYMPHOCYTES # (AUTO) 0.6 K/uL (0.60-3.4); LYMPHOCYTES % (AUTO) 10.5 (10.0-50.0); MEAN CORPUSCULAR HEMOGLOBIN 26.7 pg (27.0-31.0); MEAN CORPUSCULAR HGB CONC 32.7 (31.8-35.4); MEAN CORPUSCULAR VOLUME 81.7 fl (81.0-99.0); MONOCYTES # (AUTO) 0.1 K/uL (0.4-2.0); MONOCYTES % (AUTO) 2.2 (0-10); NEUTROPHILS % (AUTO) 86.4 % (42.2-75.2); PLATELET COUNT 279 10^3/uL (140-440); RDW COEFFICIENT OF VARIATION 14.4 % (11.6-14.8); RED BLOOD COUNT 4.75 10^6/ul (4.20-5.40); WHITE BLOOD COUNT 5.81 K/ul (4.6-10.2)
[2024-03-05 05:43] LABS: HEMATOCRIT 38.8 % (37.0-47.0)
[2024-03-05 05:48] LABS: ALANINE AMINOTRANSFERASE 16.4 U/L (0-35); ALBUMIN 3.32 g/dL (3.5-5.0); ALKALINE PHOSPHATASE 121.8 U/L (53-141); BILIRUBIN,TOTAL 0.49 mg/dL (0.2-1.3); BLOOD UREA NITROGEN 7.1 mg/dL (7-17); CALCIUM 8.1 mg/dL (8.4-10.2); CARBON DIOXIDE 16.9 mmol/L (22-30.0); CHLORIDE 110.4 mmol/L (98-107); CREATININE 0.56 mg/dL (0.60-1.30); GLUCOSE 196.5 mg/dL (74-106); POTASSIUM 3.51 mmol/L (3.5-5.1); SODIUM 138.6 mmol/L (134.5-145); TOTAL PROTEIN 6.15 g/dL (6.3-8.2)
[2024-03-05] MEDS: ARICEPT PO SCH (08:16)
[2024-03-05] MEDS: PRAVACHOL PO SCH (08:16)
[2024-03-05] MEDS: PROZAC PO SCH (08:16)
--- NOTE | 2024-03-05 11:01 | PCM ---
Date of Service Date Seen by Provider: 03/05/24 Time Seen by Provider: 08:30 Admit Day/Time Admission Date: 03/04/24 Reason for Admission Chief Complaint: SEPSIS, ACUTE HYPOXEMIC, RESP FAILURE, COPD EXACER Hospital Provider Hospital Provider: BASIL BUENROSTRO, [facility] [place] [facility] Primary Care Physician: JOAN WOLFE MD History of Present Illness History of Present Illness: 78 yo female with pmh of dementia, COPD, and CHF presented to the ER with complaints of fatigue, shortness of breath, and cough x 2 weeks. She was treated for URI outpatient with z-pack and prednisone. Daughter at bedside to provide HPI. [place] she got better with outpatient treatment but declined over the last 2 days and became very weak. No fever. Has had chills. Nonproductive cough. Pneumonia noted on chest x-ray. Sat found to be in upper 80s on arrival to ER, placed on 3L and improved. Weaned down to 1L as of this am. Patient unable to provide HPI and ROS. Case Discussed With Case Discussed With: Patient's case was discussed with the ER Physicians, Dr. Khan. [facility] Medical History Uterine cancer C55 - Malignant neoplasm of uterus, part unspecified (ICD-10) Acute asthmatic bronchitis J45.909 - Unspecified asthma, uncomplicated (ICD-10) COPD exacerbation J44.1 - Chronic obstructive pulmonary disease with (acute) exacerbation (ICD-10) CHF exacerbation I50.9 - Heart failure, unspecified (ICD-10) Gastroesophageal reflux disease K21.9 - Gastro-esophageal reflux disease without esophagitis (ICD-10) Early onset Alzheimer's dementia G30.0 - Alzheimer's disease with early onset (ICD-10) Hyperlipidemia E78.5 - Hyperlipidemia, unspecified (ICD-10) Arthritis M19.90 - Unspecified osteoarthritis, unspecified site (ICD-10) Memory loss R41.3 - Other amnesia (ICD-10) History of TIAs Z86.73 - Personal history of transient ischemic attack (TIA), and cerebral infarction without residual deficits (ICD-10) Allergic sinusitis J30.9 - Allergic rhinitis, unspecified (ICD-10) Surgical History History of breast implant Z98.82 - Breast implant status (ICD-10) History of musculoskeletal system surgery right knee Z98.890 - Other specified postprocedural states (ICD-10) Status post hysterectomy Z90.710 - Acquired absence of both cervix and uterus (ICD-10) Status post tonsillectomy and adenoidectomy Z90.89 - Acquired absence of other organs (ICD-10) Family History FATHER Cerebrovascular accident Mother Cerebrovascular accident Social History Smoking and tobacco status: Former smoker Alcohol intake: former Substance use type: does not use Special medina needs: No Agree to transfusion: Yes Adopted: No Caregiver/support person: No Foster care: No Household members: family Housing: house Lives independently: Yes Daycare: no daycare Number of children: 2 service: No History of recent travel: No Do you think of yourself as: straight/heterosexual Current gender identity: female Seatbelt use: always Drives intoxicated or rides with intoxicated food service driver: No Water heater temperature set < 120 degrees: Yes Working smoke detector in home: Yes Fire extinguisher in home: Yes Carbon monoxide detector in home: Yes Allergies Allergies Allergy/AdvReac Type Severity Reaction Status Date / Time propoxyphene HCl AdvReac Unknown Verified 03/04/24 17:08 [From [place]] Current Medications Home Medications donepezil 10 mg tablet See Rx Instructions .Route .COMPLEX #90 tabs 10/14/23 [Rx Confirmed 03/04/24 Last Taken Unknown] fluoxetine 40 mg capsule See Rx Instructions .Route .COMPLEX #90 caps 10/14/23 [Rx Confirmed 03/04/24 Last Taken Unknown] memantine 10 mg tablet See Rx Instructions .Route .COMPLEX #180 tabs 10/14/23 [Rx Confirmed 03/04/24 Last Taken Unknown] pravastatin 40 mg tablet See Rx Instructions .Route .COMPLEX #90 tabs 10/14/23 [Rx Confirmed 03/04/24 Last Taken Unknown] Home Acetaminophen (Acetaminophen 325 Mg Tablet) 650 mg PO Q4H PRN PRN Reason: Mild Pain Albuterol Sulfate (Albuterol Sulfate 0.083% Vial.Neb) 2.5 mg NEB RTQ4H PRN PRN Reason: Wheezing Albuterol/Ipratropium (Ipratropium/Albuterol Vial.Neb) 3 ml NEB RTQ6H [facility] Last Admin: 03/05/24 05:38 Dose: Not Given Donepezil HCl (Donepezil Hcl 10 Mg Tablet) 10 mg PO DAILY [facility] Last Admin: 03/05/24 08:16 Dose: 10 mg Doxycycline Hyclate (Doxycycline Hyclate 100 Mg Capsule) 100 mg PO Q12HR [facility] Stop: 03/08/24 11:29 Enoxaparin Sodium (Enoxaparin Sodium 40 Mg/0.4 Ml Syr) 40 mg SUBCUT DAILY [facility] Last Admin: 03/05/24 08:16 Dose: 40 mg Fluoxetine HCl (Fluoxetine Hcl 20 Mg Capsule) 40 mg PO DAILY [facility] Last Admin: 03/05/24 08:16 Dose: 40 mg CEFTRIAXONE/D5W 1 GM PREMIX (Rocephin 1 Gm/50 Ml D5w) 1 gm in 50 mls @ 100 mls/hr IV DAILY [facility] Stop: 03/08/24 11:29 Memantine (Memantine Hcl 10 Mg Tablet) 10 mg PO BID [facility] Last Admin: 03/05/24 08:16 Dose: 10 mg Methylprednisolone Sodium Succinate (Methylprednisolone Sod Succ/Pf 40 Mg/Ml Vial) 40 mg IVP Q8H [facility] Last Admin: 03/05/24 08:43 Dose: 40 mg Pravastatin Sodium (Pravastatin Sodium 40 Mg Tablet) 40 mg PO DAILY [facility] Last Admin: 03/05/24 08:16 Dose: 40 mg Saccharomyces Boulardii (Saccharomyces Boulardii 250 Mg Capsule) 250 mg PO BID [facility] Sodium Chloride (0.9% Sodium Chloride 10 Ml Disp.Syrin) 1 syr IVF PRN PRN PRN Reason: STERILE ANTI-INFLAMMATORY Last Admin: 03/05/24 01:07 Dose: 1 syr Discontinued Medications Albuterol/Ipratropium (Ipratropium/Albuterol Vial.Neb) 3 ml NEB ONCE STA Stop: 03/04/24 15:59 Last Admin: 03/04/24 16:22 Dose: 3 ml Albuterol/Ipratropium (Ipratropium/Albuterol Vial.Neb) 3 ml NEB ONCE STA Stop: 03/04/24 16:02 Last Admin: 03/04/24 16:31 Dose: 3 ml Sodium Chloride (Sodium Chloride) 1,000 mls @ 1,000 mls/hr IV BOLUS ONE Stop: 03/04/24 16:57 Last Infusion: 03/04/24 18:45 Dose: Infused Piperacillin Sod/Tazobactam (Sod 3.375 gm/ Sodium Chloride) 100 mls @ 200 mls/hr IV ONCE ONE Stop: 03/04/24 17:28 Last Admin: 03/04/24 17:30 Dose: 200 mls/hr Sodium Chloride (Sodium Chloride) 1,000 mls @ 1,000 mls/hr IV BOLUS ONE Stop: 03/04/24 18:05 Last Infusion: 03/04/24 21:14 Dose: Infused Piperacillin Sod/Tazobactam (Sod 3.375 gm/ Sodium Chloride) 100 mls @ 200 mls/hr IV Q6HR RK Stop: 03/08/24 00:00 Last Admin: 03/05/24 05:05 Dose: 200 mls/hr Methylprednisolone Sodium Succinate (Methylprednisolone Sod Succ/Pf 125 Mg/2 Ml Vial) 125 mg IVP ONCE ONE Stop: 03/04/24 15:59 Last Admin: 03/04/24 16:51 Dose: 125 mg Opioid Naive vs. Tolerant Does Patient Take Opioids?: No Is Patient Opioid Naive?: Yes What is Opioid Naive?: *Opioid Naive implies the patient is not already taking opioids or not chronically receiving opioids on a daily basis. *PRN dosing is not "usually" associated with tolerance. *Patients are at higher risk of over-sedation and aspiration. Is Patient Opioid Tolerant?: No What is Opioid Tolerant?: *Opioid Tolerance implies less than the expected response to an opioid. *Acquired tolerance is defined by the patient taking 60mg of oral morphine daily (or equianalgesic dose of another opioid) for 1 week or more. *Often associated with chronic pain. *May take more than usual dose to achieve desired pain control. Physical examination Most Recent Vital Signs: Most Recent Vital Signs Temperature 97.3 F L 03/05/24 05:06 Temperature Source Temporal Artery Scan 03/05/24 05:06 Temperature Source Oral 03/04/24 16:02 Pulse Rate 52 L 03/05/24 05:06 Respiratory Rate 18 03/05/24 07:51 Blood Pressure 158/80 H 03/05/24 05:06 Blood Pressure Mean 106 03/05/24 05:06 Blood Pressure Left Arm 150/76 03/04/24 18:03 Blood Pressure Location Left Arm 03/05/24 05:06 Blood Pressure Position Supine 03/05/24 05:06 O2 Sat by Pulse Oximetry 96 03/05/24 05:37 Oxygen Delivery Method Nasal Cannula 03/05/24 10:00 Oxygen Flow Rate 2 03/05/24 07:51 Height 5 ft 3 in 03/04/24 18:03 Weight 74.5 kg 03/04/24 18:03 Telemetry Type Remote Telemetry 03/05/24 07:00 Telemetry Monitoring Continues 03/05/24 07:00 Telemetry Heart Rate 53 L 03/05/24 07:00 Telemetry SPO2 96 12/13/20 07:00 EKG IN Interval 0.20 03/05/24 07:00 EKG QRS Interval 0.09 03/05/24 07:00 Telemetry Strip Reading Sinus Kris arrythmia 03/05/24 07:00 Appearance: Positive No Apparent Distress and Ill-Appearing Skin: Positive Warm and Good Turgor HEENT: Positive Normocephalic and PERRLA Neck: Positive Supple and Midline Trachea Chest/Lungs: Positive Symmetrical With Equal Breath Sounds, Rhonci and Wheezes Heart: Positive RRR and Pulses Normal GI/: Positive Soft, Nontender, Bowel Sounds Normal and No Distention Musculoskeletal: Positive Not Examined Extremities: Positive Intact Peripheral Pulses, Stable Joints Without Laxity and Good ROM in All Joints Neurological: Positive Sensation Intact, Motor intact, Alert and Disorinted Labs This Visit Labs This Visit: Labs This Visit 03/04/24 03/04/24 03/04/24 16:13 16:13 16:15 WBC 10.16 RBC 5.50 H Hgb 14.9 Hct 45.3 MCV 82.4 MCH 27.1 MCHC 32.9 RDW Coeff of Marli 14.5 Plt Count 305 Immature Gran % (Auto) 0.4 Neut % (Auto) 78.7 H Lymph % (Auto) 13.3 [place] % (Auto) 6.2 Eos % (Auto) 1.2 Baso % (Auto) 0.2 Neut # (Auto) 8.0 H Lymph # (Auto) 1.4 [place] # (Auto) 0.6 Eos # (Auto) 0.1 Baso # (Auto) 0.0 Immature Gran # (Auto) 0.0 Puncture Site R brach Base Excess 2.4 O2 Saturation 93.5 L ABG pH 7.52 H* ABG pCO2 31.0 L ABG pO2 61.0 L ABG HCO3 25.3 ABG Total CO2 26.3 H Hemoglobin 0.8 Oxyhemoglobin 92.4 L Carboxyhemoglobin 1.0 Total Hemoglobin 14.6 FiO2 % 21.0 Sodium 137.0 Potassium 3.59 Chloride 103.0 Carbon Dioxide 20.7 L Anion Gap 16.89 BUN 10.9 Creatinine 0.80 Estimated GFR (MDRD) 69.00 BUN/Creatinine Ratio 13.62 Glucose 152.2 H Lactic Acid 3.29 H 3.30 H Calcium 9.16 Magnesium 2.27 Total Bilirubin 1.06 AST 27.2 ALT 18.5 Alkaline Phosphatase 136.9 Troponin I < 0.012 Total Protein 7.08 Albumin 4.25 Globulin 2.83 Albumin/Globulin Ratio 1.50 Influ A Molecular Assay Influ B Molecular Assay RSV Antigen SARS CoV-2 RNA Rapid FRANCIS[place] 03/04/24 03/05/24 16:26 05:26 WBC 5.81 RBC 4.75 Hgb 12.7 Hct 38.8 D MCV 81.7 MCH 26.7 L MCHC 32.7 RDW Coeff of Marli 14.4 Plt Count 279 Immature Gran % (Auto) 0.7 Neut % (Auto) 86.4 H Lymph % (Auto) 10.5 [place] % (Auto) 2.2 Eos % (Auto) 0.2 Baso % (Auto) 0.0 Neut # (Auto) 5.0 Lymph # (Auto) 0.6 [place] # (Auto) 0.1 L Eos # (Auto) 0.0 Baso # (Auto) 0.0 Immature Gran # (Auto) 0.0 Puncture Site Base Excess O2 Saturation ABG pH ABG pCO2 ABG pO2 ABG HCO3 ABG Total CO2 Hemoglobin Oxyhemoglobin Carboxyhemoglobin Total Hemoglobin FiO2 % Sodium 138.6 Potassium 3.51 Chloride 110.4 H Carbon Dioxide 16.9 L Anion Gap 14.81 BUN 7.1 Creatinine 0.56 L Estimated GFR (MDRD) 104.00 BUN/Creatinine Ratio 12.67 Glucose 196.5 H Lactic Acid 2.11 H D Calcium 8.10 L Magnesium Total Bilirubin 0.49 AST 24.0 ALT 16.4 Alkaline Phosphatase 121.8 Troponin I Total Protein 6.15 L Albumin 3.32 L Globulin 2.83 Albumin/Globulin Ratio 1.17 Influ A Molecular Assay Negative by naat Influ B Molecular Assay Negative by naat RSV Antigen Negative by naat SARS CoV-2 RNA Rapid FR[place]ISCO Negative Microbiology This Visit 03/04/24 16:26 Throat Group A Strep Molecular Assay - Final Imaging Imaging: EXAM: CHEST FRONTAL VIEW HISTORY: Shortness of breath COMPARISON: 12/08/2020 IMPRESSION: There is partial consolidation in the lower aspect of the right upper lobe. Similar density is seen in the mid lateral left lung. These may represent areas of pneumonia given patient history. Lungs are otherwise clear. Heart size is upper limit normal in stable. Follow-up chest imaging is recommended. Review Statement Review Statement: I have independently reviewed and interpreted the labs/EKGs/imaging that were ordered by the ER provider. I have reviewed all outside records that are available currently in our EMR including imaging/notes/labs from previous vi sits. Plan Plan: 1. Acute Hypoxic Respiratory Failure in setting of CAP and COPD exacerbation - wean oxygen as tolerated, steroids, nebs 2. Bilateral CAP - z-pack and prednisone outpatient; will do rocephin and doxy, steroids, nebs, legionella, strep pneumo, mrsa, and sputum culture ordered 3. COPD - see above plan 4. Lactic acidosis - secondary to above, improving, monitor 5. Hyperlipidemia - chronic, stable DVT Prophylaxis: Lovenox Time Spent: Greater than 80 minutes spent with patient, 50% of the time spent with this patient was devoted to counseling and coordination of care. [facility] minutes spent discussing advance care planning. Disposition: Admit to: Med/Surg Observation Full Code Discussed Plan of Care with Dr. Kristin Wolfe. Medications Medication Orders: Medications Ordered Category Date Time Status 0.9 % Sodium Chloride [Saline Flush] Meds 03/05/24 01:05 Active 1 syr IVF PRN PRN Acetaminophen [Tylenol] Meds 03/04/24 18:02 Active 650 mg PO Q4H PRN Albuterol Sulfate 0.083% Neb [Albuterol 0.083% Neb] Meds 03/04/24 18:02 Active 2.5 mg NEB RTQ4H PRN Donepezil HCl [Aricept] Meds 03/05/24 09:00 Active 10 mg PO DAILY Enoxaparin Sodium [Lovenox] Meds 03/04/24 18:30 Active 40 mg SUBCUT DAILY Fluoxetine HCl [Prozac] Meds 03/05/24 09:00 Active 40 mg PO DAILY Ipratropium/Albuterol Neb [Duoneb] Meds 03/05/24 00:00 Active 3 ml NEB RTQ6H Memantine HCl [Namenda] Meds 03/04/24 21:00 Active 10 mg PO BID Methylprednisolone Sod Succ/Pf [Solu-Medrol 40 mg] Meds 03/05/24 01:00 Active 40 mg IVP Q8H Piperacillin Sodium/Tazobactam [Zosyn 3.375 gm] 3.375 Meds 03/05/24 00:00 Active gm 0.9 % Sodium Chloride [Sodium Chloride 100Ml] 100 ml IV Q6HR Pravastatin Sodium [Pravachol] Meds 03/05/24 09:00 Active 40 mg PO DAILY
[2024-03-05] MEDS: ROCEPHIN 1 GM/50 ML D5W 1 GM/50 ML BAG IV SCH (11:30)
[2024-03-05] MEDS: FLORASTOR PO SCH (11:31)
[2024-03-05] MEDS: DOXYCYCLINE HYCLATE PO SCH (11:31)
[2024-03-05] MEDS: TUSSIONEX PO PRN (12:47)
[2024-03-06 04:55] LABS: BASOPHILS % (AUTO) 0.1 % (0.0-3.0); EOSINOPHILS % (AUTO) 0.2 % (0.0-7.0); HEMATOCRIT 38.6 % (37.0-47.0); HEMOGLOBIN 12.6 g/dl (12.0-16.0); IMMATURE GRANULOCYTE # (AUTO) 0.1 (0.0-1.0); IMMATURE GRANULOCYTE % (AUTO) 0.8 % (0.0-5.0); LYMPHOCYTES # (AUTO) 0.7 K/uL (0.60-3.4); LYMPHOCYTES % (AUTO) 4.9 (10.0-50.0); MEAN CORPUSCULAR HEMOGLOBIN 27.2 pg (27.0-31.0); MEAN CORPUSCULAR HGB CONC 32.6 (31.8-35.4); MEAN CORPUSCULAR VOLUME 83.4 fl (81.0-99.0); MONOCYTES # (AUTO) 0.6 K/uL (0.4-2.0); MONOCYTES % (AUTO) 3.9 (0-10); NEUTROPHILS # (AUTO) 13.1 K/ul (2.0-6.9); NEUTROPHILS % (AUTO) 90.1 % (42.2-75.2); PLATELET COUNT 309 10^3/uL (140-440); RDW COEFFICIENT OF VARIATION 14.7 % (11.6-14.8); RED BLOOD COUNT 4.63 10^6/ul (4.20-5.40)
[2024-03-06 05:06] LABS: ALANINE AMINOTRANSFERASE 15.4 U/L (0-35); ALBUMIN 3.48 g/dL (3.5-5.0); ALKALINE PHOSPHATASE 113.7 U/L (53-141); ASPARTATE AMINO TRANSFERASE 22.9 U/L (14-36); BILIRUBIN,TOTAL 0.3 mg/dL (0.2-1.3); BLOOD UREA NITROGEN 11.4 mg/dL (7-17); CALCIUM 8.8 mg/dL (8.4-10.2); CARBON DIOXIDE 23.5 mmol/L (22-30.0); CHLORIDE 108.9 mmol/L (98-107); CREATININE 0.64 mg/dL (0.60-1.30); POTASSIUM 3.61 mmol/L (3.5-5.1); SODIUM 141.5 mmol/L (134.5-145); TOTAL PROTEIN 6.25 g/dL (6.3-8.2)
--- NOTE | 2024-03-06 09:44 | PCM.PROG ---
Date/Time Seen Date Seen by Provider: 03/06/24 Time Seen by Provider: 08:30 Provider Provider: BASIL BUENROSTRO, [facility] Chief Complaint Chief Complaint: SEPSIS, ACUTE HYPOXEMIC, RESP FAILURE, COPD EXACER Subjective Subjective: Patient reports continued weakness and persistent cough. Cough still nonproductive at this time. Concerned with going home due to requirement of independence at her assisted living. Objective Appearance: Positive No Apparent Distress Chest/Lungs: Positive Symmetrical With Equal Breath Sounds, Rhonci and Wheezes Heart: Positive RRR and Pulses Normal GI/: Positive Soft, Nontender, Bowel Sounds Normal and No Distention Musculoskeletal: Positive Not Examined Neurological: Positive Sensation Intact, Motor intact, Alert, Oriented and Disorinted Vital Signs Vital Signs: Vital Signs: Last 24 Hours 03/05/24 10:00 03/05/24 10:00 03/05/24 11:00 Temperature Temperature Source Pulse Rate Pulse Rate [Apical] Respiratory Rate Blood Pressure Blood Pressure Mean Blood Pressure Location Blood Pressure Position O2 Sat by Pulse Oximetry 96 Oxygen Delivery Method Nasal Cannula Nasal Cannula Nasal Cannula Oxygen Flow Rate 1 Telemetry Type Telemetry Monitoring Telemetry Heart Rate EKG NJ Interval EKG QRS Interval Telemetry Strip Reading 03/05/24 12:00 03/05/24 13:00 03/05/24 13:00 Temperature Temperature Source Pulse Rate Pulse Rate [Apical] Respiratory Rate Blood Pressure Blood Pressure Mean Blood Pressure Location Blood Pressure Position O2 Sat by Pulse Oximetry Oxygen Delivery Method Nasal Cannula Nasal Cannula Oxygen Flow Rate Telemetry Type Bedside Monitor Telemetry Monitoring Continues Telemetry Heart Rate 72 EKG [place] Interval 0.15 EKG QRS Interval 0.09 Telemetry Strip Reading 72 03/05/24 14:00 03/05/24 14:00 03/05/24 14:00 Temperature 97.7 F Temperature Source Temporal Artery Scan Pulse Rate 68 Pulse Rate [Apical] Respiratory Rate 16 Blood Pressure 121/54 L Blood Pressure Mean 76 Blood Pressure Location Left Arm Blood Pressure Position Sitting O2 Sat by Pulse Oximetry 92 L 98 Oxygen Delivery Method Nasal Cannula Nasal Cannula Simple Mask Oxygen Flow Rate 1 1 Telemetry Type Telemetry Monitoring Telemetry Heart Rate EKG NJ Interval EKG QRS Interval Telemetry Strip Reading 03/05/24 15:00 03/05/24 16:00 03/05/24 17:00 Temperature Temperature Source Pulse Rate Pulse Rate [Apical] Respiratory Rate Blood Pressure Blood Pressure Mean Blood Pressure Location Blood Pressure Position O2 Sat by Pulse Oximetry Oxygen Delivery Method Nasal Cannula Nasal Cannula Room Air Oxygen Flow Rate Telemetry Type Telemetry Monitoring Telemetry Heart Rate EKG NJ Interval EKG QRS Interval Telemetry Strip Reading 03/05/24 17:00 03/05/24 18:00 03/05/24 18:55 Temperature Temperature Source Pulse Rate Pulse Rate [Apical] Respiratory Rate Blood Pressure Blood Pressure Mean Blood Pressure Location Blood Pressure Position O2 Sat by Pulse Oximetry Oxygen Delivery Method Room Air Room Air Oxygen Flow Rate Telemetry Type Remote Telemetry Telemetry Monitoring Continues Telemetry Heart Rate 106 H EKG [place] Interval 0.18 EKG QRS Interval 0.[address] 03/05/24 18:55 03/05/24 19:10 03/05/24 20:00 Temperature Temperature Source Pulse Rate Pulse Rate [Apical] 76 Respiratory Rate 20 Blood Pressure Blood Pressure Mean Blood Pressure Location Blood Pressure Position O2 Sat by Pulse Oximetry Oxygen Delivery Method Room Air Room Air Room Air Oxygen Flow Rate Telemetry Type Telemetry Monitoring Telemetry Heart Rate EKG NJ Interval EKG QRS Interval Telemetry Strip Reading 03/05/24 20:15 03/05/24 20:51 03/05/24 21:15 Temperature 97.0 F L Temperature Source Temporal Artery Scan Pulse Rate 67 Pulse Rate [Apical] Respiratory Rate 16 Blood Pressure 141/66 H Blood Pressure Mean 91 Blood Pressure Location Left Arm Blood Pressure Position Supine O2 Sat by Pulse Oximetry 92 L 96 Oxygen Delivery Method Room Air Room Air Room Air Oxygen Flow Rate Telemetry Type Telemetry Monitoring Telemetry Heart Rate EKG [place] Interval EKG QRS Interval Telemetry Strip Reading 03/05/24 22:00 03/05/24 23:00 03/05/24 23:54 Temperature Temperature Source Pulse Rate Pulse Rate [Apical] Respiratory Rate Blood Pressure Blood Pressure Mean Blood Pressure Location Blood Pressure Position O2 Sat by Pulse Oximetry Oxygen Delivery Method Room Air Room Air Room Air Oxygen Flow Rate Telemetry Type Telemetry Monitoring Telemetry Heart Rate EKG NJ Interval EKG QRS Interval Telemetry Strip Reading 03/06/24 00:46 03/06/24 00:49 03/06/24 02:00 Temperature Temperature Source Pulse Rate Pulse Rate [Apical] Respiratory Rate Blood Pressure Blood Pressure Mean Blood Pressure Location Blood Pressure Position O2 Sat by Pulse Oximetry Oxygen Delivery Method Room Air Room Air Oxygen Flow Rate Telemetry Type Remote Telemetry Telemetry Monitoring Continues Telemetry Heart Rate 70 EKG [place] Interval 0.17 EKG QRS Interval 0.07 Telemetry Strip Reading NSR 03/06/24 03:00 03/06/24 03:55 03/06/24 04:50 Temperature Temperature Source Pulse Rate Pulse Rate [Apical] Respiratory Rate Blood Pressure Blood Pressure Mean Blood Pressure Location Blood Pressure Position O2 Sat by Pulse Oximetry Oxygen Delivery Method Room Air Room Air Room Air Oxygen Flow Rate Telemetry Type Telemetry Monitoring Telemetry Heart Rate EKG NJ Interval EKG QRS Interval Telemetry Strip Reading 03/06/24 05:36 03/06/24 05:41 03/06/24 06:00 Temperature 97.1 F L Temperature Source Temporal Artery Scan Pulse Rate 69 Pulse Rate [Apical] Respiratory Rate 16 Blood Pressure 133/77 Blood Pressure Mean 95 Blood Pressure Location Left Arm Blood Pressure Position Supine O2 Sat by Pulse Oximetry 96 97 Oxygen Delivery Method Room Air Room Air Room Air Oxygen Flow Rate Telemetry Type Telemetry Monitoring Telemetry Heart Rate EKG NJ Interval EKG QRS Interval Telemetry Strip Reading 03/06/24 07:00 03/06/24 07:00 03/06/24 08:00 Temperature Temperature Source Pulse Rate Pulse Rate [Apical] Respiratory Rate 18 Blood Pressure Blood Pressure Mean Blood Pressure Location Blood Pressure Position O2 Sat by Pulse Oximetry Oxygen Delivery Method Room Air Room Air Oxygen Flow Rate Telemetry Type Remote Telemetry Telemetry Monitoring Continues Telemetry Heart Rate 59 L EKG [place] Interval 0.20 EKG QRS Interval 0.10 Telemetry Strip Reading Sinus Kris Lab Results Lab Results: Lab Results: Last 24 Hours 03/06/24 04:47 WBC 14.50 H D RBC 4.63 Hgb 12.6 Hct 38.6 MCV 83.4 MCH 27.2 MCHC 32.6 RDW Coeff of Marli 14.7 Plt Count 309 Immature Gran % (Auto) 0.8 Neut % (Auto) 90.1 H Lymph % (Auto) 4.9 L [place] % (Auto) 3.9 Eos % (Auto) 0.2 Baso % (Auto) 0.1 Neut # (Auto) 13.1 H Lymph # (Auto) 0.7 [place] # (Auto) 0.6 Eos # (Auto) 0.0 Baso # (Auto) 0.0 Immature Gran # (Auto) 0.1 Sodium 141.5 Potassium 3.61 Chloride 108.9 H Carbon Dioxide 23.5 Anion Gap 12.71 BUN 11.4 Creatinine 0.64 Estimated GFR (MDRD) 90.00 BUN/Creatinine Ratio 17.81 Glucose 174.0 H Lactic Acid 1.97 Calcium 8.80 Total Bilirubin 0.30 AST 22.9 ALT 15.4 Alkaline Phosphatase 113.7 Total Protein 6.25 L Albumin 3.48 L Globulin 2.77 Albumin/Globulin Ratio 1.25 Additional Comments Additional Comments: I have independently reviewed and interpreted the labs/EKGs/imaging ordered during this hospital stay. I have reviewed outside records that are available in our EMR that pertain to medical stay including imaging/notes/labs from previous visits. Active Medications Active Medications: Medications Generic Name Dose Route Start Last Admin Trade Name Freq PRN Reason Stop Dose Admin Acetaminophen 650 mg 03/04/24 18:02 Acetaminophen 325 Mg Tablet PO Q4H PRN Mild Pain Albuterol Sulfate 2.5 mg 03/04/24 18:02 Albuterol Sulfate 0.083% Vial.Neb NEB RTQ4H PRN Wheezing Albuterol/Ipratropium 3 ml 03/05/24 00:00 03/06/24 06:13 Ipratropium/Albuterol Vial.Neb NEB Not Given RTQ6H RK Chlorphenir/Hydrocodone Polistirex 5 ml 03/05/24 12:09 03/05/24 12:47 Hydrocodone/Chlorphen Polis 5 Ml Disp.Syrin PO 5 ml Q12H PRN Administration Cough Donepezil HCl 10 mg 03/05/24 09:00 03/06/24 09:13 Donepezil Hcl 10 Mg Tablet PO 10 mg DAILY RK Administration Doxycycline Hyclate 100 mg 03/05/24 11:30 03/06/24 09:12 Doxycycline Hyclate 100 Mg Capsule PO 03/08/24 11:29 100 mg Q12HR RK Administration Enoxaparin Sodium 40 mg 03/04/24 18:30 03/06/24 09:06 Enoxaparin Sodium 40 Mg/0.4 Ml Syr SUBCUT 40 mg DAILY RK Administration Fluoxetine HCl 40 mg 03/05/24 09:00 03/06/24 09:06 Fluoxetine Hcl 20 Mg Capsule PO 40 mg DAILY RK Administration CEFTRIAXONE/D5W 1 GM PREMIX 1 gm in 50 mls @ 100 mls/hr 03/05/24 11:30 03/06/24 09:06 Rocephin 1 Gm/50 Ml D5w IV 03/08/24 11:29 100 mls/hr DAILY RK Administration Memantine 10 mg 03/04/24 21:00 03/06/24 09:12 Memantine Hcl 10 Mg Tablet PO 10 mg BID RK Administration Methylprednisolone Sodium Succinate 40 mg 03/05/24 01:00 03/06/24 09:15 Methylprednisolone Sod Succ/Pf 40 Mg/Ml Vial IVP 40 mg Q8H RK Administration Pravastatin Sodium 40 mg 03/05/24 09:00 03/06/24 09:12 Pravastatin Sodium 40 Mg Tablet PO 40 mg DAILY RK Administration Saccharomyces Boulardii 250 mg 03/05/24 11:30 03/06/24 09:06 Saccharomyces Boulardii 250 Mg Capsule PO 250 mg BID RK Administration Sodium Chloride 1 syr 03/05/24 21:00 03/06/24 04:59 0.9% Sodium Chloride 10 Ml Disp.Syrin IVF 1 syr Q8H RK Administration Plan Plan: 1. Acute Hypoxic Respiratory Failure in setting of CAP and COPD exacerbation - wean oxygen as tolerated, steroids, nebs 2. Bilateral CAP - z-pack and prednisone outpatient; will do rocephin and doxy, steroids, nebs, legionella, strep pneumo, mrsa, and sputum culture ordered 3. COPD - see above plan 4. Lactic acidosis - secondary to above, improving, monitor 5. Hyperlipidemia - chronic, stable 6. Weakness - secondary to #2, PT/OT following DVT Prophylaxis: Lovenox Dispo: Admit to Inpatient. Patient requiring >48hours of care. Requiring assistance to ambulate and balance is impaired. Reports significant weakness. Resides at independent living facility and at risk for deterioration due to age and comorbidities. Review Statement Review Statement: I have personally discussed and reviewed the patient's visit/currently labs/imaging/decision making with Dr. Pimentel, my supervising attending. Greater that 50 minutes spent with patient, 50% of the time spent with this patient was devoted to counseling and coordination of care.
--- NOTE | 2024-03-06 09:46 | RS.PTINEVL ---
Subjective Patient information Date of Evaluation: 03/06/24 Date of Arrival on Unit: 03/04/24 Admitted From:: Home Diagnosis: sepsis, pneumonia, difficulty walking, impaired balance Usual Living Arrangement: [facility] Home Environment: Apartment and Level/No stairs Medical History: CVA/TIA, COPD, Dementia (Alzheimer's), CHF and Arthritis Medical History Comments:: GERD Medications: see chart Subjective Information/ Patient Comments:: pt states she is tired. pt's daughter encouraged pt to participate and sit up in chair. Level of function Prior to this admission, the patient could do the following:: Independent Ambulation (has a rwx but did not use it) and Participated in Social Activities Outside home Abilities prior to this admission: daughter and son assist her with needs. Current Level of Function: Partially Dependent Current Equipment Used at Home: has a rollator but did not use at home. Interventions Objective Patient Orientation: Person and Place Current Interventions: IV's and Telemetry Observation: pt with persistent cough. Range of Motion ROM Right Upper Extremity AROM: WFL's Left Upper Extremity AROM: WFL's Right Lower Extremity AROM: WFL's Left Lower Extremity AROM: WFL's Muscle Strength Muscle Strength Right Upper Extremity: Mild Weakness (grossly 4/5 ) Left Upper Extremity: Mild Weakness (grossly 4/5 ) Right Lower Extremity: Mild Weakness (hip flex 4-/5, knee flex/ext 4/5, ankle DF/PF 4/5) Left Lower Extremity: Mild Weakness (hip flex 4-/5, knee flex/ext 4/5, ankle DF/PF 4/5) Sensation Sensation Right Upper Extremity: Intact/Normal Left Upper Extremity: Intact/Normal Right Lower Extremity: Intact/Normal Left Lower Extremity: Intact/Normal Palpation Palpation Findings: None/Normal Balance Sitting Balance and Reactions Static Sitting Balance: Fair (fair+) Dynamic Sitting Balance: Fair Standing Balance and Reactions Static Standing Balance: Poor Dynamic Standing Balance: Poor Functional Mobility Bed Mobility Rolling R/L: Independent Supine to Sit: Supervision Transfers Sit to Stand: CGA and Min Assist Stand to Sit: CGA and Min Assist Comments:: on/off commode min x 1, pt was independent with toilet hygiene Safety Awareness Safety Awareness: Poor BO INDEX SCORE: n/a Ambulation Ambulation Assistive Device Used: Rolling Walker Orthotic/Prosthetic Device: No Distance: 15ft x 2 Assistance needed with Ambulation: Min Assist and 1 person assist Quality of Ambulation: pt with increased lat sway, decreased step length, occasional scissoring, deviation from path Factors Affecting Ambulation: Decreased Balance, Weakness, Decreased Coordination, Decreased Safety, Cognitive Status and Limited Endurance Treatment time Units charged ADL: 1 (TA) Time with patient Length of Evaluation: 19 Total treatment time: 27 Patient Education Education Patient Education: Activity Modification and Education of Plan of Care Teaching Recipient: Patient Teaching Methods: Discussion Comments: discussion regarding POC and safety with transfers Assessment Assessment Problem List:: Decreased level of function, Requires training/education, Decreased safety/Risk of falls, Weakness, Pain limits previous level of function and Cognitive status limits abilities Rehab Potential: Fair Further Therapy Indicated?: Yes Candidate for Swing Bed for Therapy Services?: Feel pt may not be a candidate for swing bed due to dementia. Evaluation Complexity: HISTORY: Medium, EXAM OF BODY SYSTEMS: Medium, CLINICAL PRESENTATION: Medium and CLINICAL DECISION MAKING: Medium Patient's Goal(s): Family goal is for pt to be able to return to assisted living Short Term Goals GOAL #1: pt demonstrate rolling and scooting in bed independently. Goal to be met by: 03/09/24 GOAL #2: Transfer sup to/from sit CGA Goal to be met by: 03/09/24 GOAL #3: Transfer sit to/from stand CGA Goal to be met by: 03/09/24 GOAL #4: pt amb with rwx 75ft with CGA Goal to be met by: 03/09/24 GOAL #5: pt demonstrate BLE strength 4 to 4+/5 Goal to be met by: 03/09/24 Usp Goals GOAL #1: pt transfer sup to/from sit to/from stand SBA. Goal to be met by: 03/11/24 GOAL #2: pt amb with rwx functional distances with SBA Goal to be met by: 03/11/24 GOAL #3: Improve dyn stand balance to fair Goal to be met by: 03/11/24 Plan Plan of Care: Therapeutic EX and Therapeutic Activity Other:: Gait training Frequency of Treatment: 1-2 X day, as tolerated Duration of Treatment: 5 days Anticipated Discharge Destination: Assisted Living Facility Treatment Diagnosis (ICD 10 Codes): difficulty walking R 26.2 impaired balance R 26.81 weakness M62.81 Has the Physician been added for Co-signature?: Yes
[2024-03-07 05:19] VITALS: BP 147/75; PULSE 64; RESP 18; TEMP 97.5
[2024-03-07 05:33] LABS: BASOPHILS % (AUTO) 0.1 % (0.0-3.0); EOSINOPHILS % (AUTO) 0.1 % (0.0-7.0); HEMATOCRIT 37.9 % (37.0-47.0); HEMOGLOBIN 12.3 g/dl (12.0-16.0); IMMATURE GRANULOCYTE # (AUTO) 0.3 (0.0-1.0); LYMPHOCYTES # (AUTO) 0.7 K/uL (0.60-3.4); MEAN CORPUSCULAR HGB CONC 32.5 (31.8-35.4); MEAN CORPUSCULAR VOLUME 83.1 fl (81.0-99.0); MONOCYTES # (AUTO) 0.6 K/uL (0.4-2.0); MONOCYTES % (AUTO) 4.5 (0-10); NEUTROPHILS # (AUTO) 12.3 K/ul (2.0-6.9); NEUTROPHILS % (AUTO) 88.3 % (42.2-75.2); PLATELET COUNT 346 10^3/uL (140-440); RED BLOOD COUNT 4.56 10^6/ul (4.20-5.40); WHITE BLOOD COUNT 13.91 K/ul (4.6-10.2)
[2024-03-07 05:50] LABS: ALBUMIN 3.21 g/dL (3.5-5.0); ALKALINE PHOSPHATASE 106.9 U/L (53-141); ASPARTATE AMINO TRANSFERASE 25.2 U/L (14-36); BILIRUBIN,TOTAL 0.22 mg/dL (0.2-1.3); BLOOD UREA NITROGEN 15.6 mg/dL (7-17); CALCIUM 8.45 mg/dL (8.4-10.2); CARBON DIOXIDE 22.2 mmol/L (22-30.0); CHLORIDE 108.6 mmol/L (98-107); CREATININE 0.7 mg/dL (0.60-1.30); GLUCOSE 164.1 mg/dL (74-106); POTASSIUM 3.51 mmol/L (3.5-5.1); SODIUM 140.8 mmol/L (134.5-145); TOTAL PROTEIN 5.78 g/dL (6.3-8.2)
[2024-03-07 05:56] LABS: ALANINE AMINOTRANSFERASE 25.7 U/L (0-35)
--- NOTE | 2024-03-07 09:08 | DCSUM ---
Admission Date Admission Date: 03/05/24 Discharge Date Discharge Date: 03/07/24 Admission Diagnosis Admission Diagnosis: 1. Acute Hypoxic Respiratory Failure in setting of CAP and COPD exacerbation 2. Bilateral CAP 3. COPD 4. Lactic acidosis 5. Hyperlipidemia Discharge Diagnosis Discharge Diagnosis: 1. Acute Hypoxic Respiratory Failure in setting of CAP and COPD exacerbation - Resolved 2. Bilateral CAP - Improving 3. COPD - Improving 4. Lactic acidosis - Resolved 5. Hyperlipidemia - chronic, stable 6. Weakness - Improving Hospital Provider Hospital Provider: BASIL BUENROSTRO, [facility]ist [facility] Primary Care Physician Primary Care Physician: JOAN WOLFE MD Summary of History and Physical Summary of History and Physical: 78 yo female with pmh of dementia, COPD, and CHF presented to the ER with complaints of fatigue, shortness of breath, and cough x 2 weeks. She was treated for URI outpatient with z-pack and prednisone. Daughter at bedside to provide HPI. Whitney she got better with outpatient treatment but declined over the last 2 days and became very weak. No fever. Has had chills. Nonproductive cough. Pneumonia noted on chest x-ray. Sat found to be in upper 80s on arrival to ER, placed on 3L and improved. Weaned down to 1L as of this am. Patient unable to provide HPI and ROS. Hospital Course Subjective: During stay, patient was treated for community acquired pneumonia with rocephin and doxycycline due to recent treatment with z-pack, steroids, and nebs. She was able to be weaned off oxygen and has tolerated room air well. Cough has improved and not been as severe per patient and family. Also reports weakness is improved today. D/c with RX for doxycycline and cefuroxime. Follow-up with PCP next week. Appearance: Pleasant, No Apparent Distress and Alert HEENT: MMM and Supple CVS: No Murmur Abdomen: Soft and Non-Tender Respiratory: No Dyspnea Extremities: No Edema Vital Signs: Most Recent Vital Signs Temperature 97.5 F L 03/07/24 05:19 Temperature Source Temporal Artery Scan 03/07/24 05:19 Temperature Source Oral 03/04/24 16:02 Pulse Rate 64 03/07/24 05:19 Respiratory Rate 18 03/07/24 05:19 Blood Pressure 147/75 H 03/07/24 05:19 Blood Pressure Mean 99 03/07/24 05:19 Blood Pressure Left Arm 150/76 03/04/24 18:03 Blood Pressure Location Left Arm 03/07/24 05:19 Blood Pressure Position Supine 03/07/24 05:19 O2 Sat by Pulse Oximetry 94 L 03/07/24 05:19 Oxygen Delivery Method Room Air 03/07/24 07:40 Oxygen Flow Rate 1 03/05/24 14:00 Height 5 ft 3 in 03/04/24 18:03 Weight 74.5 kg 03/04/24 18:03 Telemetry Type Remote Telemetry 03/07/24 07:00 Telemetry Monitoring Continues 03/07/24 07:00 Telemetry Heart Rate 76 03/07/24 07:00 Telemetry SPO2 96 12/13/20 07:00 EKG MD Interval 0.14 03/07/24 07:00 EKG QRS Interval 0.06 03/07/24 07:00 Telemetry Strip Reading SR 03/07/24 07:00 Imaging: EXAM: CHEST FRONTAL VIEW IMPRESSION: There is partial consolidation in the lower aspect of the right upper lobe. Similar density is seen in the mid lateral left lung. These may represent areas of pneumonia given patient history. Lungs are otherwise clear. Heart size is upper limit normal in stable. Follow-up chest imaging is recommended. Lab Results Last 24 Hours: 03/07/24 04:58 WBC 13.91 H RBC 4.56 Hgb 12.3 Hct 37.9 MCV 83.1 MCH 27.0 MCHC 32.5 RDW Coeff of Marli 15.0 H Plt Count 346 Immature Gran % (Auto) 2.0 Neut % (Auto) 88.3 H Lymph % (Auto) 5.0 L [place] % (Auto) 4.5 Eos % (Auto) 0.1 Baso % (Auto) 0.1 Neut # (Auto) 12.3 H Lymph # (Auto) 0.7 [place] # (Auto) 0.6 Eos # (Auto) 0.0 Baso # (Auto) 0.0 Immature Gran # (Auto) 0.3 Sodium 140.8 Potassium 3.51 Chloride 108.6 H Carbon Dioxide 22.2 Anion Gap 13.51 BUN 15.6 Creatinine 0.70 Estimated GFR (MDRD) 81.00 BUN/Creatinine Ratio 22.28 Glucose 164.1 H Calcium 8.45 Total Bilirubin 0.22 AST 25.2 ALT 25.7 Alkaline Phosphatase 106.9 Total Protein 5.78 L Albumin 3.21 L Globulin 2.57 Albumin/Globulin Ratio 1.24 Discharge Instructions Discharge Planning: Discharge Planning > 40 minutes If patient is discharged with left ventricular systolic dysfunction: NA Discharged with a beta sonali? [] If no, why not? [] Discharged with an greer/arb? [] If no, why not? [] Diagnosis: Community Acquired Pneumonia Diet: Regular Activity: as tolerated Follow-up with PCP next week as scheduled. Medications: Doxycycline twice a day x 5 days - start this evening Ceftin twice a day x 5 days - start this evening Discharge Medications: Medications at Discharge (Home Meds & RX) donepezil 10 mg tablet See Rx Instructions .Route .COMPLEX #90 tabs 10/14/23 fluoxetine 40 mg capsule See Rx Instructions .Route .COMPLEX #90 caps 10/14/23 memantine 10 mg tablet See Rx Instructions .Route .COMPLEX #180 tabs 10/14/23 pravastatin 40 mg tablet See Rx Instructions .Route .COMPLEX #90 tabs 10/14/23 Discharge Plan Discharge Discharge Orders: Discharge Patient (ONCE); Ordered 03/07/24 Ordered By: CIELO DELGADO Activity Restrictions/Additional Instructions: Diagnosis: Community Acquired Pneumonia Diet: Regular Activity: as tolerated Follow-up with PCP next week as scheduled. Medications: Doxycycline twice a day x 5 days - start this evening Ceftin twice a day x 5 days - start this evening Instructions: Community Acquired Pneumonia (GEN) Patient Disposition: HOME SELF-CARE Prescriptions: New doxycycline hyclate 100 mg Capsule 100 mg PO Q12HR Qty: 9 0RF cefuroxime axetil 500 mg tablet 500 mg PO BID Qty: 9 0RF Continued donepezil 10 mg tablet See Rx Instructions .ROUTE .COMPLEX Qty: 90 1RF Dose Instruction: TAKE ONE TABLET BY MOUTH DAILY Rx Instructions: TAKE ONE TABLET BY MOUTH DAILY fluoxetine 40 mg capsule See Rx Instructions .ROUTE .COMPLEX Qty: 90 1RF Dose Instruction: TAKE ONE CAPSULE BY MOUTH DAILY Rx Instructions: TAKE ONE CAPSULE BY MOUTH DAILY memantine 10 mg tablet See Rx Instructions .ROUTE .COMPLEX Qty: 180 1RF Dose Instruction: TAKE ONE TABLET BY MOUTH TWICE A DAY Rx Instructions: TAKE ONE TABLET BY MOUTH TWICE A DAY pravastatin 40 mg tablet See Rx Instructions .ROUTE .COMPLEX Qty: 90 1RF Dose Instruction: TAKE ONE TABLET BY MOUTH DAILY Rx Instructions: TAKE ONE TABLET BY MOUTH DAILY Did you review [place] [employer] for ALL controlled substances?: No Discussed opioids are addictive and Narcan is available by prescription or from pharmacy.: No Condition: Stable Referrals: JOAN WOLFE MD [Primary Care Provider] - 03/12/24 10:00 am
[2024-03-07] MEDS ORDERED: AUGMENTIN 875-125 MG TAB PO ONE (09:15)
[2024-03-07] MEDS: CEFTIN PO ONE (09:58)
== END 2024-03-07 10:15 | disposition home or self-care (01) | DRG 190 ==
LOC: ED 15:56 → MEDSURG B 15:56
PROVIDERS: ADMIT Hospitalist; ATTEND Nurse Practitioner Family
DX: J44.1 Chronic obstructive pulmonary disease with (acute) exacerbation; E78.5 Hyperlipidemia, unspecified; Z87.891 Personal history of nicotine dependence; J96.01 Acute respiratory failure with hypoxia; E87.20 Acidosis, unspecified; J18.9 Pneumonia, unspecified organism